=== PATIENT | male | born 1945 | race Caucasian/White ===

== ENCOUNTER 2018-10-31 09:57 | Inpatient (IN) | payer MEDICARE ==
[~2018-10-31] VITALS: Ht 182.9 cm; Wt 64.8 kg
[~2018-10-31 09:57] MED LIST: CEPH500 PO; MULVITMINF; OXYM.05NI; TETR.05OPS BOTHEYES
[2018-10-31 12:00] LABS: BASOPHILS ABSOLUTE AUTO 0.01 K/mm3 (0.00-0.23); BASOPHILS PERCENT AUTO 0 % (0-2); EOSINOPHILS PERCENT AUTO 0 % (0-6); Hematocrit 36.8 % (37.0-53.0); Hemoglobin 12.7 g/dL (13.5-17.5); IMMATURE GRAN ABSOLUTE AUTO 0.03 K/mm3 (0.00-0.10); IMMATURE GRAN PERCENT AUTO 1 % (0-1); LYMPHOCYTES ABSOLUTE AUTO 0.47 K/mm3 (0.84-5.20); LYMPHOCYTES PERCENT AUTO 8 % (21-46); MONOCYTES ABSOLUTE AUTO 0.64 K/mm3 (0.16-1.47); MONOCYTES PERCENT AUTO 10 % (4-13); Mean Corpuscular HGB 32.8 pg (26.0-34.0); Mean Corpuscular HGB Conc 34.5 g/dL (31.5-36.5); Mean Corpuscular Volume 95 fL (80-100); Mean Platelet Volume 8.4 fL (9.1-12.4); NEUTROPHILS ABSOLUTE AUTO 5.07 K/mm3 (1.96-9.15); NEUTROPHILS PERCENT AUTO 81 % (41-73); Platelet Count 173 K/mm3 (150-400); RDW Coefficient Variation 13.2 % (11.7-14.2); RDW Standard Deviation 46.1 fL (35.1-46.3); Red Blood Cell Count 3.87 M/mm3 (4.30-5.90); White Blood Cell Count 6.22 K/mm3 (4.00-11.30)
[2018-10-31 12:21] LABS: Alanine Aminotransfer (ALT/SGP 51 U/L (12-78); Albumin, Blood 3.2 g/dL (3.4-5.0); Albumin/Globulin Ratio 0.9 (0.8-1.8); Alk Phos 84 U/L (50-136); Anion Gap 9 mmol/L (6-16); Aspartate Aminotrans (AST/SGOT 75 U/L (12-37); Bilirubin, Total 2.6 mg/dL (0.1-1.0); Blood Urea Nitrogen 9 mg/dL (8-24); Bun/Creatinine Ratio 11.3 (12.0-20.0); CO2, Blood 23 mmol/L (21-32); Calcium, Blood 8.4 mg/dL (8.5-10.1); Chloride, Blood 101 mmol/L (98-108); Globulin, Blood 3.4 g/dL (2.2-4.0); Glomerular Filtration Rate >60 (60-); Glucose, Blood 140 mg/dL (70-99); Potassium, Blood 4.4 mmol/L (3.5-5.5); Sodium, Blood 133 mmol/L (136-145); Total Protein, Blood 6.6 g/dL (6.4-8.2)
--- NOTE | 2018-10-31 13:20 | NUR ---
ORTHO CONSULT SPOKE WITH DR ACKERMAN, DR STEVENSON AWARE OF CONSULT.
--- NOTE | 2018-10-31 17:42 | NUR ---
SHIFT SUMMARY PT AWAKE, CONFUSED, PLEASANT & COOPERATIVE. CIWA 12 TX'D WITH 1 MG ATIVAN. 18G LFA. THIAMINE IVF @ 150 MLS/HR. CAROLYN PO, DENIES N&V. S/P SANTOS FX, ELEVATED ON PILLOW/ICE ON. TELE SINUS @ 93. SCDS. ORTHO CONSULT CALLED. PAIN MANAGED WITH 0.5 MG DILAUDID. NORVASC GIVEN FOR BP.
[2018-11-01 03:40] LABS: BASOPHILS ABSOLUTE AUTO 0.02 K/mm3 (0.00-0.23); BASOPHILS PERCENT AUTO 0 % (0-2); EOSINOPHILS PERCENT AUTO 0 % (0-6); Hematocrit 31.7 % (37.0-53.0); Hemoglobin 10.9 g/dL (13.5-17.5); IMMATURE GRAN ABSOLUTE AUTO 0.02 K/mm3 (0.00-0.10); IMMATURE GRAN PERCENT AUTO 0 % (0-1); LYMPHOCYTES ABSOLUTE AUTO 0.97 K/mm3 (0.84-5.20); LYMPHOCYTES PERCENT AUTO 15 % (21-46); MONOCYTES ABSOLUTE AUTO 0.77 K/mm3 (0.16-1.47); MONOCYTES PERCENT AUTO 12 % (4-13); Mean Corpuscular HGB 32.2 pg (26.0-34.0); Mean Corpuscular HGB Conc 34.4 g/dL (31.5-36.5); Mean Corpuscular Volume 94 fL (80-100); Mean Platelet Volume 8.8 fL (9.1-12.4); NEUTROPHILS ABSOLUTE AUTO 4.65 K/mm3 (1.96-9.15); NEUTROPHILS PERCENT AUTO 72 % (41-73); Platelet Count 141 K/mm3 (150-400); RDW Standard Deviation 44.6 fL (35.1-46.3); Red Blood Cell Count 3.39 M/mm3 (4.30-5.90); White Blood Cell Count 6.43 K/mm3 (4.00-11.30)
[2018-11-01 03:58] LABS: Alanine Aminotransfer (ALT/SGP 40 U/L (12-78); Albumin, Blood 2.8 g/dL (3.4-5.0); Albumin/Globulin Ratio 0.9 (0.8-1.8); Alk Phos 64 U/L (50-136); Anion Gap 8 mmol/L (6-16); Aspartate Aminotrans (AST/SGOT 57 U/L (12-37); Bilirubin, Total 2.7 mg/dL (0.1-1.0); Blood Urea Nitrogen 8 mg/dL (8-24); Bun/Creatinine Ratio 12.2 (12.0-20.0); CO2, Blood 25 mmol/L (21-32); Calcium, Blood 7.9 mg/dL (8.5-10.1); Chloride, Blood 102 mmol/L (98-108); Creatinine, Blood 0.66 mg/dL (0.60-1.20); Globulin, Blood 3.1 g/dL (2.2-4.0); Glomerular Filtration Rate >60 (60-); Glucose, Blood 103 mg/dL (70-99); Magnesium, Blood 2.3 mg/dL (1.6-2.4); Potassium, Blood 3.7 mmol/L (3.5-5.5); Sodium, Blood 135 mmol/L (136-145); Total Protein, Blood 5.9 g/dL (6.4-8.2)
--- NOTE | 2018-11-01 07:58 | NUR ---
SUMMARY: ADMIT DAY 2 RIGHT HUMERUS FX. VSS, AFEBRILE, TOLERATING REG DIET, VOIDING CLEAR CARLOS URINE AND HAD ONE LARGE LIQUED STOOL. PT APPEARS UNSTEADY ON FEET AND IMPULSIVE BUT FOLLOWS DIRECTIONS WELL. RUE DOES NOT APPEAR TO BE PAINFUL PT NEEDED REMINDERS TO NOT BEAR WEIGHT ON RUE WITH ADL'S. CONTINUE TO MONITOR FOR PAIN, SWELLING. CIWA 8 OR LESS THROUGHOUT THE NOC AND DID NOT REQUIRE PRN ATIVAN.
--- NOTE | 2018-11-01 12:38 | NUR ---
PT TRYING TO GET OUT OF BED WITHOUT ASSISTANCE. PT REDIRECTED, CALL LIGHT INSTRUCTION GIVEN AND BED ALARM ON
--- NOTE | 2018-11-01 16:22 | NUR ---
WITHDRAWAL DR. ACKERMAN NOTIFIED THAT PT WAS CLEARED BY ORTHO TO DISCHARGE HOME. DR. ACKERMAN NOTIFIED THAT PT IS HAVING WITHDRAWAL SYMPTOMS CIWA AT 7 AND INCREASING. PT REPORTS HE NO LONGER WANTS TO DRINK. AT THIS TIME PLAN TO TREAT WITH ATIVAN AND LIBRIUM. WILL DC BEERS ON TRAYS PER DR. ACKERMAN AND CONTINUE TO MONITOR.
--- NOTE | 2018-11-01 17:20 | NUR ---
PT ADMITTED FOR R HUMERUS FX. RIGHT ARM SWOLLEN AND BRUISED. PATIENT KEEPS USING ARM AND PUTTING PRESSURE ON IT. EDUCATED PATIENT ON NEED TO REST ARM. PT HAS BEEN CONFUSED DURING SHIFT. ALERT TO SELF, SITUATION AND SOMETIMES LOCATION. INTERMITTENT AGITATION AND ANXIETY. MEDICATED WITH ATIVAN X2. CIWA SCORES OF 12 AND 11 BEFORE RECEIVING ATIVAN. SMALL VISIBLE TREMORS. PT IS STATING HE NO LONGER WANTS TO DRINK BEER, DRANK HALF OF BEER AT LUNCH. SLING PLACED ON PATIENT PATIENT HAS TAKEN OFF SLING AND REFUSES TO KEEP ON. LIBRIUM ORDERS STARTED PER DR. ACKERMAN. PATIENT IN AND OUT OF BED MULTIPLE TIMES. BED ALARM ON, CALL LIGHT IN REACH.
--- NOTE | 2018-11-01 18:29 | NUR ---
ATIVAN WAS GIVEN. CIWA SCORE 14 AT TIME ATIVAN WAS GIVEN. WILL REASSESS AND CONTINUE TO MONITOR.
--- NOTE | 2018-11-01 19:07 | NUR ---
HUE NURSE PRACTITIONER NOTIFIED OF INCREASED CIWA SCORE OF 14 WHEN ATIVAN WAS GIVEN. PT HAS NOT IMPROVED SINCE DOSE WAS GIVEN. WILL GIVE ATIVAN 2MG ORDERED. WILL CONTINUE TO MONITOR.
--- NOTE | 2018-11-01 19:45 | NUR ---
SHIFT SUMMARY CIWA SCORE HAS INCREASED T/O THE DAY. ATIVAN GIVEN. PT HAS REMOVED THE SLING TO HIS R ARM MULTIPLE TIMES AND CONTINUES TO USE THE R ARM. CAP REFILL WNL. VSS. WILL MONITOR UNTIL REPORT TO ONCOMING RN.
--- NOTE | 2018-11-01 20:45 | NUR ---
TRANSFERED TO ICU BED 11 VIA HOSPITAL BED DUE TO WITHDRAWL SYSMPTOMS INCLUDING AUDITORY, TACTILE, AND VISUAL HALLUCINATIONS AND A CIWA OF 31. ALL BELONGINGS GATHERED AND TAKEN WITH PT. TRANSFERED TO BED WITH FULL STAFF ASSISTANCE, TOLERATED WELL. UPDATED REPORT GIVEN AT BEDSIDE TO Akilah MENESES RN USING SBAR.
[2018-11-01 20:49] LABS: Alanine Aminotransfer (ALT/SGP 43 U/L (12-78); Albumin, Blood 2.9 g/dL (3.4-5.0); Albumin/Globulin Ratio 0.9 (0.8-1.8); Alk Phos 64 U/L (50-136); Anion Gap 6 mmol/L (6-16); Aspartate Aminotrans (AST/SGOT 69 U/L (12-37); Bilirubin, Total 2.9 mg/dL (0.1-1.0); Blood Urea Nitrogen 8 mg/dL (8-24); CO2, Blood 24 mmol/L (21-32); Calcium, Blood 8.2 mg/dL (8.5-10.1); Chloride, Blood 105 mmol/L (98-108); Creatinine, Blood 0.67 mg/dL (0.60-1.20); Globulin, Blood 3.2 g/dL (2.2-4.0); Glomerular Filtration Rate >60 (60-); Glucose, Blood 100 mg/dL (70-99); Magnesium, Blood 2.2 mg/dL (1.6-2.4); Potassium, Blood 3.2 mmol/L (3.5-5.5); Sodium, Blood 135 mmol/L (136-145); Total Protein, Blood 6.1 g/dL (6.4-8.2)
--- NOTE | 2018-11-01 21:30 | NUR ---
PT TRANSFERRED INTO ICU 11 FROM SURGICAL FLOOR FOR INCREASING CIWA. PT ARRIVES WEARING RIGHT ARM SLING/BOLSTER. MUMBLING, AND SPEAKING TO OTHERS NOT IN TH E ROOM. REACHES OUT TO OBJECTS THAT ARE NOT PRESENT. PT DOES NOT RESPOND TO ANY QUESTIONING. PLACED PT IN DILLON VEST RESTRAINT SECONDARY TO PT ATTEMPTING TO GET OUT OF BED WITHOUT REGAURD TO HIS OWN SAFETY. PT HAS BEEN MEDICATED WITH ATIVAN FOR CIWA LEVEL OF 23. WILL REVEIW CHART AND PLAN OF CARE FOR THIS PT.
--- NOTE | 2018-11-02 00:35 | NUR ---
HAVE MADE CALL TO ANTHONY SWANN WITH UPDATE ON PT. STARTED PRECEDEX DRIP AT 0.5 MCG/KG. PT HAS CALMED SOME. DID PLACE SOFT RESTRAINT TO LEFT ARM SECONDARY TO HIM PULLING AT HIS SLING AND TRYING TO DISMANTLE BOLSTER. THIS HAS HELPED PROTECT PT FROM SELF HARM. PT DOES TEND TO THROW HIS LEGS OVER RAILING THOUGH WITH DILLON ON, PT NOT ABLE TO PROGRESS FURTHER. BLADDER SCAN OF PT REVEALS 88 ML URINE RETENTION. WILL MONITOR.
--- NOTE | 2018-11-02 03:00 | NUR ---
PT HAS DROP IN HEART RATE AND A DROP IN BLOOD PRESSURES. DID DECREASE PRECEDEX DRIP TO 0.2 MCG'S/KG/HOUR. PT'S BLOOD PRESSURES AND HEART RATE REMAIN STABLE AFTER THIS. WILL CONTINUE TO MONITOR PT.
--- NOTE | 2018-11-02 06:30 | NUR ---
PT HAS BEEN INCONTINENT TO URINE AND HAS SMEAR OF STOOL. PT NOT ABLE TO EXPRESS THAT HE HAD BEEN INCONTINENT. DOES NOT FOLLOW COMMANDS OR CONVERSATION. REMAINS ON PRECEDEX AT 0.2 MCG'S/KG/HOUR. PT CONTINUES IN DILLON VEST, AND SOFT WRIST RESTRAINT ON LEFT SIDE. PT HAD BEEN PULLING AT BOLSTER FOR HIS RIGHT ARM. IS NOT REDIRECTABLE. WILL CONTINUE TO MONITOR PT, AND WILL REPORT OFF TO ONCOMING RN.
[2018-11-02 06:57] LABS: BASOPHILS ABSOLUTE AUTO 0.01 K/mm3 (0.00-0.23); BASOPHILS PERCENT AUTO 0 % (0-2); EOSINOPHILS ABSOLUTE AUTO 0.01 K/mm3 (0.00-0.68); EOSINOPHILS PERCENT AUTO 0 % (0-6); Hematocrit 25.7 % (37.0-53.0); Hemoglobin 8.7 g/dL (13.5-17.5); IMMATURE GRAN ABSOLUTE AUTO 0.04 K/mm3 (0.00-0.10); IMMATURE GRAN PERCENT AUTO 1 % (0-1); LYMPHOCYTES ABSOLUTE AUTO 0.79 K/mm3 (0.84-5.20); LYMPHOCYTES PERCENT AUTO 16 % (21-46); MONOCYTES ABSOLUTE AUTO 0.52 K/mm3 (0.16-1.47); MONOCYTES PERCENT AUTO 11 % (4-13); Mean Corpuscular HGB 32.1 pg (26.0-34.0); Mean Corpuscular HGB Conc 33.9 g/dL (31.5-36.5); Mean Corpuscular Volume 95 fL (80-100); NEUTROPHILS ABSOLUTE AUTO 3.58 K/mm3 (1.96-9.15); NEUTROPHILS PERCENT AUTO 72 % (41-73); Platelet Count 122 K/mm3 (150-400); RDW Coefficient Variation 12.8 % (11.7-14.2); RDW Standard Deviation 44.1 fL (35.1-46.3); Red Blood Cell Count 2.71 M/mm3 (4.30-5.90); White Blood Cell Count 4.95 K/mm3 (4.00-11.30)
[2018-11-02 07:11] LABS: Percent Saturation 24.4 % (20.0-50.0)
[2018-11-02 07:14] LABS: Anion Gap 4 mmol/L (6-16); Blood Urea Nitrogen 7 mg/dL (8-24); CO2, Blood 24 mmol/L (21-32); Calcium, Blood 7.7 mg/dL (8.5-10.1); Chloride, Blood 109 mmol/L (98-108); Creatinine, Blood 0.54 mg/dL (0.60-1.20); Glomerular Filtration Rate >60 (60-); Glucose, Blood 88 mg/dL (70-99); Sodium, Blood 137 mmol/L (136-145)
[2018-11-02 07:15] LABS: Potassium, Blood 5.9 mmol/L (3.5-5.5)
--- NOTE | 2018-11-02 07:56 | NUR ---
ASSUMED CARE: REPORT RECEIVED FROM BILLIE Jimenez RN. ASSUMED CARE OF THIS PT AT APRPOX 0700. ON ASSESSMENT, PT RESTING QUIETLY. SOFT WRIST RESTRAINT TO L ARM & DILLON VEST IN PLACE. WHEN AWAKE, PT PULLS AT SLING TO R ARM & LINES/CORDS, ALSO ATTEMPTS TO GET OOB PER REPORT. CIWA CHARTED. PRECEDEX DRIP AT 0.2 MCG/KG/HR. PT ON RA W/ O2 SATS > 95%, RESP E/U, OCCASIONAL SNORE NOTED. MONITOR SHOWS NSR W/ HR 80s, BP STABLE. ATTENDS IN PLACE FOR INTERMITTENT INCONTINENCE. WILL CONTINUE TO MONITOR & UPDATE NEEDED.
--- NOTE | 2018-11-02 16:08 | NUR ---
Spiritual Care intial note: Mr. Arreaga slept soun dly while I met with his two sisters at bedside. They tell me that Jaime understands he needs to make life-style changes. "Wether he does them or not is another matter." One sister lives next door to Jaime and the other is nearby. Both appear loving and devoted. This is a non-hinduism family, but Jaime's family responded well to affirmation of love and assurance of excellent care/attention. Encouraged self-care. [employer] services will remain available.
--- NOTE | 2018-11-02 17:02 | NUR ---
SHIFT SUMMARY: NO ACUTE CHANGES SINCE ASSUMING CARE. PT HAS RESTED WELL DURING THIS SHIFT & WHEN AWAKE HAS NO C/O PAIN OR DISCOMFORT. R ARM IS HEAVILY BRUISED & DISCOLORED, THERE IS A MODERATE AMNT OF SWELLING TO THE AREA WELL. THE ARM CONTINUES HAVING STRONG RADIAL PULSES & SLING REMAINS INTACT. CIWA SCORES CHARTED, PT MORE AWAKE THIS AFTERNOON & IS PLEASANT/ COOPERATIVE W/ CARE. LS ARE CLEAR T/O, PT ON RA W/ O2 SATS > 92%. OCCASIONAL SNORES NOTED BUT PT DOES NOT DESAT DURING THIS TIME. MONITOR SHOWS SB-SR, HR 50-60s ON AVG. BP LABILE, SBP 100-140s. BT x4, PT HAS NO GI COMPLAINTS. STRAIGHT CARH PERFORMED THIS AFTERNOON PT HADN'T VOIDED DURING THE FIRST HALF OF THE SHIFT & BLADDER SCAN REVEALED 656 ML URINE IN BLADDER. WILL CONTINUE TO MONITOR & REPORT OFF TO ONCOMING RN.
--- NOTE | 2018-11-02 19:46 | NUR ---
ASSUMED CARE RECIEVED REPORT FROM AMY BLOOM. PT IS LYING IN BED LIGHTLY SOMNOLENT; AROUSABLE. HE THOUGHT HE WAS IN [place], BUT KNOWS HES IN A HOSPITAL. VITALS ARE STABLE. PT HAS AN ARM SLING ON HIS RIGHT ARM, SCD'S ON HIS BILATERAL CALVES, AND HAS DRY ATTENDS ON. NO FAMILY AT BEDSIDE. BED IS LOW AND LOCKED. CALL LIGHT WITHIN REACH. PT DENIES ANY PAIN OR DISCOMFORT AND STATES HE IS TIRED.
[2018-11-03 04:45] LABS: Hemoglobin 10.5 g/dL (13.5-17.5); Mean Corpuscular HGB 32.8 pg (26.0-34.0); Mean Corpuscular Volume 94 fL (80-100); Mean Platelet Volume 8.5 fL (9.1-12.4); Platelet Count 182 K/mm3 (150-400); RDW Coefficient Variation 12.7 % (11.7-14.2); RDW Standard Deviation 43.6 fL (35.1-46.3); White Blood Cell Count 4.51 K/mm3 (4.00-11.30)
--- NOTE | 2018-11-03 05:08 | NUR ---
UPDATE BOTH PATIENT'S IV'S HAVE INFILTRATED, ATTEMPTING TO INSERT POWERGLIDE NOW; PRECEDEX ON STANDBY. ALSO UNSURE IF 2MG ATIVAN AT 0417 REACHED BLOODSTREAM. WILL REASSESS CIWA IN INTERVENTIONS. PT IS AWAKE AFTER LAB DRAWS, STRAIGHT CATH, AND CURRENTLY POWERGLIDE INSERTION. PT IS ALERT ENOUGH TO ANSWER SOME QUESTIONS, BUT HAS SEVERELY GARBLED SPEECH, AND IS VERY HARD OF HEARING. I TRIED GIVING HIM MOUTH SWABS, BUT HAS NOT HELPED WITH COMPREHENSION. HE IS HAVING TROUBLE REMEMBERING WHERE HE IS, AFTER TELLING HIM HES IN [facility] IN [place] (HE THOUGHT HE WAS IN [place]) AT THE BEGINNING OF SHIFT - HE NOW THINKS HE IS IN "[place], [place]". HE DOES RECALL HAVING TWO SISTERS, THOUGH.
[2018-11-03 05:34] LABS: Albumin, Blood 2.6 g/dL (3.4-5.0); Anion Gap 7 mmol/L (6-16); Blood Urea Nitrogen 8 mg/dL (8-24); Bun/Creatinine Ratio 13.9 (12.0-20.0); CO2, Blood 23 mmol/L (21-32); Calcium, Blood 7.8 mg/dL (8.5-10.1); Chloride, Blood 108 mmol/L (98-108); Creatinine, Blood 0.58 mg/dL (0.60-1.20); Glomerular Filtration Rate >60 (60-); Glucose, Blood 84 mg/dL (70-99); Phosphorus, Blood 2.1 mg/dL (2.5-4.9); Sodium, Blood 138 mmol/L (136-145)
[2018-11-03 05:35] LABS: Potassium, Blood 3.7 mmol/L (3.5-5.5)
--- NOTE | 2018-11-03 07:27 | NUR ---
SHIFT SUMMARY PT IS LYING IN BED ASLEEP. PT HAD BOTH PERIPHERAL IV'S INFILTRATE AND WENT WITHOUT PRECEDEX FOR AN UNKNOWN AMOUNT OF TIME, ALONG WITH NOT RECIEVING HIS ATIVAN DOSE. EARLY THIS MORNING PT WAS HAVING VISUAL HALLUCINATIONS DESCRIBING A MOVING LIGHTBULB THAT WAS NO WHERE TO BE SEEN. HE WAS NOT AGITATED BUT SLIGHTLY ANXIOUS AND DEFINITELY CONFUSED. CURRENTLY PRECEDEX IS INFUSING THROUGH A POWERGLIDE AT 0.2MCG/KG/HR. PT WAS BLADDER SCANNED LAST NIGHT DUE TO NO VOIDING; AND STRAIGHT CATH WAS PERFORMED DUE TO URINARY RETENTION OF 500ML OF CARLOS URINE. PRECEDEX WAS NOT INFUSING - HR HAD INCREASED TO 130. CURRENTLY BACK DOWN TO 100. BP HAS BEEN LABILE, SOMETIMES ELEVATED, SOMETIMES PERFECTLY FINE (SEE VS FLOWSHEET). BED IS LOW AND LOCKED. CALL LIGHT WITHIN REACH. NO FAMILY AT BEDSIDE.
--- NOTE | 2018-11-03 08:06 | NUR ---
ASSUMED CARE: REPORT RECEIVED FROM LAKSHMI Olvera RN. ASSUMED CARE OF THIS PT AT APPROX 0700. ON ASSESSMENT, THE PT IS RESTING QUIETLY. HE AWAKENS BRIEFLY TO VERBAL STIMULUS BUT REMAINS CONFUSED ABOUT TIME/ PLACE/ LOCATION, HE DOES FOLLOW COMMANDS. PT REMAINS IN DILLON VEST DOCUMENTED FOR CONTINUED CONFUSION & ATTEMPTS TO GET OOB WHEN MORE AWAKE. LS ARE DIM T/O, PT ON RA W/ O2 SATS > 92%. MONITOR SHOWS SR, HR 90s. BP LABILE, SBP 100-150s. PRECEDEX INFUSING AT 0.2 MCG/KG/HR. CIWA CHARTED. WILL CONTINUE TO MONITOR & UPDATE NEEDED.
--- NOTE | 2018-11-03 09:42 | NUR ---
DR QUIÑONES: PROVIDER AT BEDSIDE TO SEE PT. INFORMED HER OF PT's INCREASED CONFUSION W/ PRECEDEX OFF LAST NIGHT & ALSO OF PT's NEED TO BE STRAIGH CATHED AGAIN FOR RETENTION LAST NIGHT. NO NEW ORDERS AT THIS TIME. KPHOS INFUSING PER PRIOR ORDERS. WILL CONTINUE TO MONITOR & UPDATE NEEDED.
--- NOTE | 2018-11-03 10:48 | NUR ---
1015-ASSUMED CARE OF PT. PT IS SEDATED WITH PRECEDEX @ 0.2MCG/KG/HR. SLEEPING SOUNDLY AT THIS TIME. SLEEP APNEA NOTED WITHOUT DESATURATION. CLEAR BREATH SOUNDS, DIMINISHED BASES. ON ROOM AIR. R ARM BURTH SLING. 1050-PT WOKE UP. PT CONFUSED OF WHERE HE'S AT. REMINDED HIM HE IS IN THE HOSPITAL IN THE ICU. PT IS FOLLOWING COMMANDS. DENIES PAIN TO HIS RIGHT ARM.
--- NOTE | 2018-11-03 15:18 | NUR ---
PT'S SISTER TONI AT BEDSIDE. UPDATED HER OF PT'S STATUS. PT IS ABLE TO RECOGNIZE HER SISTER. STILL WITH A LITTLE CONFUSION NOTED. FOLLOWING COMMANDS.
--- NOTE | 2018-11-03 17:50 | NUR ---
DR. QUIÑONES WAS CALLED RE: PT HAS VOIDED SMALL AMOUNT NOTED IN DIAPER. DID BLADDER SCAN NOTED TO HAVE 270-380 RESIDUAL URINE. SHE ORDERED TO CONTINUE STRAIGTH CATH INSTEAD OF PLACING MATHEWS.
--- NOTE | 2018-11-03 18:36 | NUR ---
SHIFT SUMMARY: PT HAS BEEN SLEEPING MOST OF THE DAY. PT WOKE UP AT AROUND 1400 THIS AFTERNOON, SAT AT THE SIDE OF THE BED AND DANGLE. ENCOURAGED PT TO SIT ON THE CHAIR FOR A SHORT PERIOD OF TIME, PT WANTED TO GO BACK TO SLEEP. CIWA SCORE 4-5. PT STILL ON PRECEDEX DRIP @ 0.1 MCG/KG/HR. PT IS STILL CONFUSED AT TIMES. TRIED TO GIVE PT SIPS OF WATER BUT WAS COUGHING AFTER THE 3RD SIP. PT NOT FED. PT WAS AWAKE WHEN SISTER CAME TO VISIST, TALKED WITH HER FOR A FEW MINUTES. STRAIGHT CATH PATIENT PER DR. QUIÑONES'S ORDER.
--- NOTE | 2018-11-03 21:20 | NUR ---
ASSUMED CARE OF PT, REPORT RCV'D FROM MERLE HOPE. PT RESPONSIVE TO VERBAL STIMULI, ABLE TO STATE NAME, LOCATION ("HOSPITAL"), INCIDENCE ("FELL AND HIT HEAD") BUT WAS UNABLE TO CORRECTLY IDENTIFY MONTH OR YEAR. PT SLOW TO RESPOND TO QUESTIONS AND HAS PERIODS OF INCOHERENT MUMBLING. LUNG SOUNDS DIM T/O, O2 SATS >93 ON RA, SLIGHTLY FEBRILE, 99.6. PT INCONTINENT OF URINE AND RETAINS URINE PER DAYSHIFT NURSE. BLADDER SCAN PRN WITH STRAIGHT CATH 1X PER SHIFT ORDERED. WILL MONITOR FOR ETOH SYMPTOMS, CURRENT CIWA 4. SEE FULL SHIFT ASSESSMENT.
--- NOTE | 2018-11-04 02:11 | NUR ---
PLACED PRECEDEX ON STANDBY AT 0000. CURRENTLY PT AWAKE AND COOPERATIVE WITH CARE. PT ALERT TO SELF AND SITUATION, CONFUSED TO LOCATION. PT KEEPS ASKING FOR HIS "WATCH" AND INSISTING THAT HE HAS A "PLANE TO CATCH TO GO SEE A GAME [place]". PT REASSURED THAT HIS BELONGINGS ARE SAFE AND SECURE. PT EASILY COMFORTED. VISIBLE TREMORS NOTED, CIWA 9, MEDICATED WITH 25 MG LIBRIUM. PT ABLE TO SIT UP, DRINK WATER USING A STRAW AND SWALLOW PILL WITH NO DIFFICULTIES. PT CURRENTLY SITTING UP IN BED WATCHING FOOTBALL. BED IN LOW LOCKED POSITION, CALL LIGHT WITHIN REACH, BED ALARM ON .
--- NOTE | 2018-11-04 03:50 | NUR ---
PT CONTINUES TO BE CONFUSED AND IS NO LONGER COOPERATING WITH CARE. PT ATTEMPTING TO TAKE SCD'S OFF AND CLIMB OUT OF BED DESPITE BEING REORIENTED TO PLACE AND SITUATION. PT IS ASKING HOW I "GOT INTO HIS HOUSE" AND IF I "USED THE BACK DOOR". PT NOW REFUSING TO TAKE PO MEDICATIONS. PRECEDEX GTT RESTARTED AT 0.2 MCG/KG/HR.
[2018-11-04 04:17] LABS: Albumin, Blood 2.2 g/dL (3.4-5.0); Anion Gap 7 mmol/L (6-16); Blood Urea Nitrogen 9 mg/dL (8-24); Bun/Creatinine Ratio 12.7 (12.0-20.0); CO2, Blood 23 mmol/L (21-32); Calcium, Blood 7.6 mg/dL (8.5-10.1); Chloride, Blood 108 mmol/L (98-108); Creatinine, Blood 0.71 mg/dL (0.60-1.20); Glomerular Filtration Rate >60 (60-); Glucose, Blood 91 mg/dL (70-99); Phosphorus, Blood 2.8 mg/dL (2.5-4.9); Potassium, Blood 3.6 mmol/L (3.5-5.5); Sodium, Blood 138 mmol/L (136-145)
--- NOTE | 2018-11-04 05:50 | NUR ---
SHIFT SUMMARY PT REMAINS ON PRECEDEX 0.1 MCG/KG/HR. PT NO LONGER AGITATED AND ATTEMPTING TO CLIMB OUT OF BED, SLEEPING BUT AROUSABLE. PT HAD LARGE AMOUNT OF INCONTINENT URINE IN ATTENDS. BLADDER SCAN SHOWED 53 ML OF URINE, NO SIGN OF RETENTION OR NEED FOR STRAIGHT CATH. CURRENT CIWA SCORE IS 0, PT IS SLEEPING AND NO OUTWARD SIGNS OF ETOH W/D. PLEASE SEE PREVIOUS NOTES FROM THIS SHIFT. WILL REPORT TO DAYSHIFT NURSE.
--- NOTE | 2018-11-04 08:53 | NUR ---
PT IS A FEEDER. PT WAS ABLE TO SWALLOW SPOONFULS OF WATER. COUGHED AT TIMES. PT WAS ABLE TO TOLERATE FEEDING WELL. PT ONLY ATE 3 SPOONFULS OF OATMEAL AND 3 SPOONFULS OF EGGS WITH SMALL AMOUNT OF JUICE AND WATER. FAMILY AT BEDSIDE. PT'S SISTER STATED, PT "EATS LIKE A BIRD."
--- NOTE | 2018-11-04 14:33 | NUR ---
ASSUMED CARE OF PT AT 0700. PT SLEEPING AND ON 0.1 PRECEDEX. AT 0800 PT AWAKE, ASKING IF HE IS STILL IN HOSPITAL, INFORMED PT HE WAS IN THE HOSPITAL IN ICU. FAMILY AT BEDSIDE, PT MEDICATED FOR PN. SLING/IMMOBILIZER TO R ARM/SHOULDER. PLAN TO MOBILIZE PT TOLERATED AND TITRATE PRECEDEX DOWN TOLERATED, ENCOURAGE PO INTAKE, LIBRIUM PO NEEDED.
--- NOTE | 2018-11-04 16:29 | NUR ---
PT AWOKEN TO ASSESS. PT REMAINS CONFUSED, SLOW TO ANSWER QUESTIONS, GARBLED SPEECH. BLADDER FOUND TO BE DISTENDED, PT STS DOES NOT FEEL THE NEED TO URINATE. BLADDER SCANNER SHOWED >200, REPEATED WITH SURGICAL FLOOR BLADDER SCAN WHICH SHOWED 367ml. DR QUIÑONES NOTIFIED OF RETENTION, NO NEW ORDERS AT THIS TIME. WILL CONTINUE TO ENCOURAGE PT TO URINATE PER PHYSICIAN. WILL RECHECK WITH BLADDER SCAN THIS EVENING.
--- NOTE | 2018-11-04 18:12 | NUR ---
SHIFT SUMMARY PT ASLEEP MOST OF SHIFT , SOMEWHAT CONFUSED, AT TIMES PT IS AWARE OF LOCATION AND EVENT, CANNOT RECALL DATE. PT COMPLAINS OF R ARM/SHOULDER PAIN WITH REPOSITION/ATTENDS CHANGE, OTHERWISE DENIES PAIN. PRECEDEX WAS TITRATED OFF AT 1645, PT BECOMING MORE AWAKE AND ALERT TOWARDS END OF SHIFT. SWALLOW EVALUATED WITH SWAB @ 1800, PT COUGHS EXCESSIVELY, NOT FOLLOWING DIRECTIONS. DINNER HELD AT THIS TIME DUE TO ASPIRATION CONCERNS. WILL RE-EVALUATE PT BECOMES MORE ALERT.
--- NOTE | 2018-11-04 20:15 | NUR ---
ASSUMED CARE OF PT, REPORT RCV'D FROM ANNITA RN AND DIAMOND RN. PT ALERT TO SELF, PLACE, AND SITUATION. PT BELIEVES HE HAS BEEN THE HOSPITAL FOR "2 NIGHTS FOR HIS BROKEN SHOULDER". PT'S RIGHT ARM IS SECURE IN SLING. PT DENIES PAIN AND DECLINES PAIN MEDICATION WITH AGREEMENT TO LET NURSING STAFF KNOW IF PAIN INCREASES. PRECEDEX PLACED ON STANDBY @1645. PT IS CURRENTLY COOPERATIVE WITH CARE AND IS FOLLOWING DIRECTION BUT IS VISIBLY TREMULOUS AND ANXIOUS. VITAL SIGNS REMAIN STABLE. ATTENDS IN PLACE, WILL BLADDER SCAN NEEDED. SEE FULL SHIFT ASSESSMENT.
--- NOTE | 2018-11-04 21:35 | NUR ---
PHONE CONVERSATION WITH PT'S SISTERS AND NIECE REGARDING PT'S CONDITION. FAMILY CONCERNED ABOUT PT'S ABILITY TO COMMUNICATE NEEDS, ESPECIALLY PAIN. PER FAMILY, PT IS CONFUSED AT BASELINE D/T TBI AND IS EMBARASSED AND OFTEN UNABLE TO COMMUNICATE NEEDS. PT'S FAMILY CONCERNED THAT PT IS IN PAIN BUT UNABLE TO CONVEY THAT, FAMILY REASSURED THAT PT IS RECEIVING PAIN MEDICATION. PER FAMILY, PT REQUIRES STRICT HOME ROUTINE AND FAMILIAR SURROUNDINGS OR HE BECOMES OVERWHELMED AND ANXIOUS. PER FAMILY, PT APPEARED MORE COGNIZANT DURING MORNING VISIT.
--- NOTE | 2018-11-05 01:33 | NUR ---
PT REQUIRING 2-3L O2 TO MAINTAIN O2 SATS>90. PT HAS GURGLING SOUND IN THROAT WITH CONTINUOUS NON-PRODUCTIVE COUGH, SHALLOW BREATHING. PT OPENING EYES TO VERBAL STIMULI AND FOLLOWING SOME, NOT ALL, COMMANDS. RT AT BEDSIDE ADMINISTERING BREATHING TX. LUNG SOUNDS CLEAR T/O. COMPLETED BEDSIDE SWALLOW EVAL AND DETERMINED PT SHOULD BE NPO D/T DECREASED LOC, INCREASING O2 NEEDS, AND INCREASING THROAT SECRETIONS.
[2018-11-05 03:45] LABS: BASOPHILS ABSOLUTE AUTO 0.03 K/mm3 (0.00-0.23); BASOPHILS PERCENT AUTO 0 % (0-2); Hematocrit 26.5 % (37.0-53.0); Hemoglobin 9.1 g/dL (13.5-17.5); LYMPHOCYTES ABSOLUTE AUTO 0.67 K/mm3 (0.84-5.20); LYMPHOCYTES PERCENT AUTO 9 % (21-46); MONOCYTES ABSOLUTE AUTO 0.87 K/mm3 (0.16-1.47); MONOCYTES PERCENT AUTO 11 % (4-13); Mean Corpuscular HGB 33.6 pg (26.0-34.0); Mean Corpuscular HGB Conc 34.3 g/dL (31.5-36.5); Mean Platelet Volume 8.4 fL (9.1-12.4); Platelet Count 193 K/mm3 (150-400); RDW Coefficient Variation 12.9 % (11.7-14.2); RDW Standard Deviation 45.9 fL (35.1-46.3); Red Blood Cell Count 2.71 M/mm3 (4.30-5.90); White Blood Cell Count 7.68 K/mm3 (4.00-11.30)
[2018-11-05 03:46] LABS: EOSINOPHILS ABSOLUTE AUTO 0.01 K/mm3 (0.00-0.68); EOSINOPHILS PERCENT AUTO 0 % (0-6); IMMATURE GRAN ABSOLUTE AUTO 0.13 K/mm3 (0.00-0.10); IMMATURE GRAN PERCENT AUTO 2 % (0-1); Mean Corpuscular Volume 98 fL (80-100); NEUTROPHILS ABSOLUTE AUTO 5.97 K/mm3 (1.96-9.15); NEUTROPHILS PERCENT AUTO 78 % (41-73)
--- NOTE | 2018-11-05 05:58 | NUR ---
PT HAVE INCREASING OXYGEN NEEDS, CURRENTLY ON 3.5 O2 VIA NC WITH SATS @92%. PT SHAKING AND FEBRILE, CONTINUOUS COUGH. CALL PLACED TO HOSPITALIST. ORDER FOR STAT ABG AND REVIEW OF MORNINGS XRAY AND ORDERS TO FOLLOW NEEDED.
[2018-11-05 06:09] LABS: PCO2 Arterial 29.8 mmHg (35-45); PO2 Arterial 54.9 mmHg (80-100); pH Blood Arterial 7.47 (7.35-7.45)
--- NOTE | 2018-11-05 06:15 | NUR ---
SHIFT SUMMARY PT RESPONSIVE TO VERBAL STIMULI BY OPENING HIS EYES, PT FAILS TO RESPOND VERBALLY TO ANY QUESTIONS EXCEPT "ARE YOU IN PAIN", IN WHICH HE CONSISTENTLY NODS HIS HEAD NO AND SAYS "NO". PT CURRENTLY ON 3LNC WITH O2 SATS OF 92%. PT TREATED WITH 10MG HYDRALAZINE FOR CONTINUED HYPERTENSION AND REMAINS TACHYCARDIC WITH HR 130'S-140'S. TMAX 99.1, PT CONTINUES TO SHIVER WHICH APPEARS VISIBLY DIFFERENT THAN ETOH W/D TREMORS. PT HAD 2 LARGE INCONTINENT VOIDS AND REMAINS IN ATTENDS. BT HYPOACTIVEX4. SEE PREVIOUS NOTES FROM THIS SHIFT. WILL REPORT TO DAYSMTFT NURSE.
--- NOTE | 2018-11-05 07:36 | NUR ---
ASSUMPTION OF CARE I ASSUMED CARE OF THIS PT AT 0700. PT IS SLEEPING IN BED, AROUSES TO VERBAL STIMULI. PT IS TACHYCARDIC, HYPERTENSIVE AND TACHYPNEIC, 02 REQUIREMENTS INCREASED FROM 3L TO 5L VIA NC, 02 90-92%. COPIUS AMOUNTS OF SECRETIONS SUCTIONED FROM BACK OF THROAT. CRACKLES TO BASES OF LUNGS. DR QUIÑONES PAGED REGARDING CONCERNS.
--- NOTE | 2018-11-05 07:45 | NUR ---
TEMPERATURE 102.2 REMOVED 1 BLANKET FROM PT, LEAVING 1 BLANKET COVERING LOWER PART OF BODY ONLY.
--- NOTE | 2018-11-05 07:46 | NUR ---
NOTIFIED DR QUIÑONES OF CONCERNS, WILL BE IN SHORTLY TO EVALUATE PT.
--- NOTE | 2018-11-05 08:30 | NUR ---
TEMPERATURE 101.7 REMOVED REMAINING BLANKET AND APPLIED TOP SHEET FOR COVER/PRIVACY.
--- NOTE | 2018-11-05 11:42 | NUR ---
PT AWAKE BUT DROWSY, EVALUATED PTS COMFORT LEVEL, PT STS HE IS COMFORTABLE AND STS HE JUST WANTS TO SLEEP.
--- NOTE | 2018-11-05 14:05 | NUR ---
ORAL CARE PROVIDED AT 1215, PT COUGHED ON SMALL AMOUNT OF LIQUID. PT BIT DOWN ON SWAB, NOT FOLLOWING DIRECTIONS, CHEWED FOAM ON SWAB IN HALF. ALL PIECES REMOVED FROM MOUTH. UNABLE TO ORALLY SUCTION PT DUE TO BITING ON CATHETER, NT SUCTION PROVIDED. LARGE AMOUNT OF SECRETIONS SUCTIONED. PT TOLERATED PROCEDURE WELL. BED BATH PROVIDED AT 1300. PT COMPLAINS OF PAIN DURING REPOSITIONING FOR BATH AND LINEN CHANGE. LARGE AMOUNT OF URINE PRESENT IN ATTENDS, CONDOM CATH PLACED ON PT. 1345 PT A LITTLE MORE RESPONSIVE AND MOANING, ASKED IF PT WAS IN PAIN, PT STS "I AM NOT IN PAIN, I AM JUST WAKING UP".
--- NOTE | 2018-11-05 15:42 | NUR ---
WHILE IN PTS ROOM, I NOTICED PT HAD AN APNEIC PERIOD DURING SLEEP. O2 SATURATIONS DECREASED TO 80%, USED VERBAL STIMULATION AND GENTLE SHAKE TO WAKE PT UP. PT STARTED BREATHING AND 02 SATS RECOVERED IN LESS THAN 20 SECONDS.
--- NOTE | 2018-11-05 18:07 | NUR ---
SHIFT SUMMARY OVERALL PT IMPROVED THIS SHIFT. MAINTENANCE FLUIDS AND ABX STARTED EARLY THIS SHIFT, VITAL SIGNS IMPROVED SOON AFTER. HR NOW 90'S-110, TEMP 99.7, PT REMAINED TACHYPNEIC T/O SHIFT. PT AWAKE FOR SOME OF SHIFT, SPEECH GARBLED. PT HAS A WEAK COUGH AND UNABLE TO CLEAR SECRETIONS, NT SUCTIONED NEEDED. CONDOM CATH PLACED THIS SHIFT WITH GOOD URINE OUTPUT. BREIF APNEIC PERIODS DURING SLEEP INCREASED DURING END OF SHIFT, 02 SATURATIONS RECOVER QUICKLY, 2L 02 VIA NC PLACED ON PT. TORADOL PROVIDED FOR CPOT OF 4.
--- NOTE | 2018-11-05 20:28 | NUR ---
ASSUMED CARE OF PT, REPORT RCV'D FROM DIAMOND, RN AND ANNITA RN. PT ALERT TO VERBAL STIMULI, PT MUMBLES IN RESPONSE TO QUESTIONS AND IS SLOW TO RESPOND. LUNG SOUNDS CLEAR T/O, DIM BASES. PT CURRENTLY ON 2L NC WITH O2 SATS OF 93%,WEAK COUGH, WITH PERIODS OF APNEA WHILE SLEEPING. CONDOM CATH SECURELY IN PLACE DRAINING CLEAR CARLOS URINE. SEE FULL SHIFT ASSESSMENT.
--- NOTE | 2018-11-06 01:10 | NUR ---
MID SHIFT ASSESSMENT PT PULLED CONDOM CATH OFF AND LEAKED URINE IN BED. DURING BEDDING CHANGE PT STATED THAT HE WAS "COLD", ASKED PT IF HE KNEW WHERE HE WAS AND PT RESPONDED "I DON'T KNOW", PT REORIENTED AND ASKED IF HE KNEW WHY HE WAS IN THE HOSPITAL, PT RESPONDED "I THINK" WITH NOTHING FURTHER. WHEN ASKED ABOUT PAIN, PT MUMBLED "SHOULDER". MEDICATED PER EMAR FOR PT'S PAIN PRIOR TO BEDDING CHANGE. PT REMAINS ON 3L NC AND HAS WEAK COUGH. NG SUCTIONING APPROPRIATE, THICK WHITE/YELLOW OUTPUT.
[2018-11-06 04:06] LABS: Hematocrit 26.9 % (37.0-53.0)
[2018-11-06 04:31] LABS: Albumin, Blood 1.9 g/dL (3.4-5.0); Anion Gap 8 mmol/L (6-16); Blood Urea Nitrogen 8 mg/dL (8-24); Bun/Creatinine Ratio 14.5 (12.0-20.0); CO2, Blood 23 mmol/L (21-32); Calcium, Blood 7.6 mg/dL (8.5-10.1); Chloride, Blood 113 mmol/L (98-108); Creatinine, Blood 0.55 mg/dL (0.60-1.20); Glomerular Filtration Rate >60 (60-); Glucose, Blood 90 mg/dL (70-99); Phosphorus, Blood 3.2 mg/dL (2.5-4.9); Sodium, Blood 144 mmol/L (136-145)
--- NOTE | 2018-11-06 06:17 | NUR ---
SHIFT SUMMARY NO ACUTE CHANGES OVERNIGHT. PT CONTINUES TO BE ALERT ONLY TO SELF. PT MOANS, MUMBLES, AND SAYS "OH BOY" WITH PERIODS OF CLARITY. PT ABLE TO EXPRESS THAT HE WAS COLD AND OCCASIONS WHEN HE HAD PAIN. PT MEDICATED PRIOR TO BEDDING CHANGE. PT CURRENTLY ON RA WITH SATS 95-98%. NG SUCTIONING PERFORMED ON 2 OCCASIONS WITH SMALL AMOUNT OF THICK WHITE SPUTUM OUT. PT CONTINUES TO HAVE SHALLOW TACHYPNEIC BREATHING WITH WEAK COUGH. PT MOSTLY SINUS RHYTHM WITH PERIODS OF SIT. TREATED ONE TIME WITH HYDRALAZINE D/T SBP>180. CONDOM CATH PATENT AND DRAINING, 825 CARLOS URINARY OUTPUT. BED IN LOW LOCKED POSITION WITH SIDERAILS UP, BED ALARM ON. PLEASE SEE PREVIOUS NOTES FROM THIS SHIFT. WILL REPORT TO DAYSHIFT NURSE.
--- NOTE | 2018-11-06 08:00 | NUR ---
BEGINNING OF SHIFT Assumed care at 0700. Bedside report received from Brennen BLOOM. Pt on room air, SpO2 99%. Pt has frequent, loose cough. Nonproductive. Pt opens eyes to verbal stimulus. Speaks to this RN, however speech is difficult to understand. Pt able to communicate "My feet are cold". Pt does not provide responses when asked what his name and date of are. Pt does not zookeeper this RN's hands when instructed to do. Pt in bed, moaning. Plan to medicate for pain. This RN placed call to Dr Ann to clarify new orders for PO meds as pt is strict NPO due to suspected aspiration. Provider stated plan for ST to see pt.
--- NOTE | 2018-11-06 08:15 | NUR ---
PAIN Pt asleep in bed, no longer moaning or indicating pain. No pain meds given. Will continue to reassess.
--- NOTE | 2018-11-06 08:43 | NUR ---
VISITOR Pt's sister, Yelitza, at bedside. Update given to sister. This RN inquired about pt's baseline level of functioning. Pt lives independently, with his sister as his neighbor. 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 Pt typically goes grocery shopping, pays bills, and cooks meals for himself.
--- NOTE | 2018-11-06 09:15 | NUR ---
DR QUIÑONES AT BEDSIDE Plan of care discussed with provider. PO meds to be held until ST can see pt. This RN inquired about ortho consult for broken shoulder. Provider stated not necessary to reintroduce ortho into plan of care at this time.
--- NOTE | 2018-11-06 10:43 | NUR ---
ST IN TO SEE PT Recommends no liquids. Pt to remain NPO at this time.
--- NOTE | 2018-11-06 11:35 | NUR ---
UPDATE Pt following directions. Answering questions for staff. Pt remains on room air.
--- NOTE | 2018-11-06 13:25 | NUR ---
UPDATE GIVEN TO DR QUIÑONES Provider called unit for update on pt. Notified provider that ST ordered for pt to remain NPO, however meds crushed in applesauce is okay. Provider stated she would change metoprolol order. Plan of care discussed. Agreed that pt would be appropriate for surgical floor. [facility] plan to work with patient.
--- NOTE | 2018-11-06 14:53 | NUR ---
CONDOM CATHETER REMOVED Attends in place C/D/I at this time.
--- NOTE | 2018-11-06 17:02 | NUR ---
SUMMARY At this time, pt is A&O x 1. Pt reoriented several time throughout shift but continues to forget current location. Pt able to have conversation with staff, answering questions appropriately and make needs known. Pt on room air. Pt has not required NT suctioning this shift. Afebrile. SR-ST per heart monitor. HR 95-105 at rest, 105-115 while pt is restless. Pt OOB with physical therapy. PAIN COORDINATOR and this RN returned pt to bed. Pt had difficulty following direction and required maximal assist. Significant bruising and some swelling noted to RUE. Color, sensation, pulses, capillary refill equal BUE. Right arm in immobilizer/sling for entire shift. Condom catheter no longer in place. Pt incontinent of urine. Pt has had two large incontinent voids of urine. Attends C/D/I at this time. No BM this shift. Clinimix infusing per orders into CHANO powerglide. Bed in lowest position. Call light in reach, however pt does not utilize it and instead calls out when he requires assistance. Pt surgical floor status with telemetry. Will continue to closely monitor until care handoff and bedside report with oncoming RN.
--- NOTE | 2018-11-06 18:20 | NUR ---
PT TO BE TRANSFERRED TO ROOM 348 Report given to Lala BLOOM. Message left for Thahn, pt's sister, to notify of transfer.
--- NOTE | 2018-11-06 18:45 | NUR ---
PT. ARRIVED TO FLOOR VIA BED, SETTLED PT. IN AND REPORTED TO ONCOMING RN.
--- NOTE | 2018-11-07 04:18 | NUR ---
SHIFT SUMMARY ORIENTED TO SELF WITH PERSISTANT CONFUSION. UNABLE TO ORIENT. REPEATES "I'VE GOT TO GET OUT OF HERE". REMINDED IN HOSPITAL SEVERAL TIMES AND WHY HE IS HERE; NO REPONSE IN RETURN. MEDICATED PER NGHIAWA X1. CLIMIMIX CONTINUED TO INFUSE W/O COMPLICATION. FREQUENT ATTENDS CHANGES. VERY ACTIVE IN BED. HYPERTENSIVE WELL ELEVATED HR, PRIOR TO BEDTIME MED; WILL RE-CHECK. ORDER RECEIVED TO CONINUE TELE; RUNNING SINUS TACH, PER PCU RADAR OPERATOR. NO OHTER ACUTE CHANGES OVERNIGHT. BED REMAINS IN LOWEST POSITION; ALARM ON. CALL LIGHT IN REACH. WCTM. REPORT TO ONCOMING RN.
[2018-11-07 09:17] LABS: Anion Gap 3 mmol/L (6-16); Blood Urea Nitrogen 9 mg/dL (8-24); Bun/Creatinine Ratio 18.3 (12.0-20.0); CO2, Blood 24 mmol/L (21-32); Calcium, Blood 7.5 mg/dL (8.5-10.1); Chloride, Blood 110 mmol/L (98-108); Creatinine, Blood 0.49 mg/dL (0.60-1.20); Glomerular Filtration Rate >60 (60-); Glucose, Blood 114 mg/dL (70-99); Phosphorus, Blood 2.5 mg/dL (2.5-4.9); Potassium, Blood 3.1 mmol/L (3.5-5.5); Sodium, Blood 137 mmol/L (136-145)
[2018-11-07 09:29] LABS: BASOPHILS ABSOLUTE AUTO 0.03 K/mm3 (0.00-0.23); BASOPHILS PERCENT AUTO 0 % (0-2); EOSINOPHILS ABSOLUTE AUTO 0.07 K/mm3 (0.00-0.68); EOSINOPHILS PERCENT AUTO 1 % (0-6); Hematocrit 26.7 % (37.0-53.0); Hemoglobin 8.9 g/dL (13.5-17.5); IMMATURE GRAN ABSOLUTE AUTO 0.11 K/mm3 (0.00-0.10); IMMATURE GRAN PERCENT AUTO 2 % (0-1); LYMPHOCYTES PERCENT AUTO 14 % (21-46); MONOCYTES ABSOLUTE AUTO 0.76 K/mm3 (0.16-1.47); MONOCYTES PERCENT AUTO 10 % (4-13); Mean Corpuscular HGB 32.1 pg (26.0-34.0); Mean Corpuscular HGB Conc 33.3 g/dL (31.5-36.5); Mean Corpuscular Volume 96 fL (80-100); Mean Platelet Volume 8.9 fL (9.1-12.4); NEUTROPHILS ABSOLUTE AUTO 5.43 K/mm3 (1.96-9.15); NEUTROPHILS PERCENT AUTO 73 % (41-73); Platelet Count 261 K/mm3 (150-400); RDW Coefficient Variation 12.9 % (11.7-14.2); RDW Standard Deviation 45.8 fL (35.1-46.3); Red Blood Cell Count 2.77 M/mm3 (4.30-5.90)
--- NOTE | 2018-11-07 18:00 | NUR ---
PT. LYING IN BED AT THIS TIME REACHING FOR THE CEEILING, HAS HAD HALLUUCINATIONS TODAY MOSTLY VISUAL. NOT DIRECTABLE. CONSTANTLY THROWING LEGS OVER THE SIDE OF THE BED TRYING TO GEET OUT OF BED. PULLING AT ARM IMMOBILIZER, AND IV'S. NOTED PT. COUGHING AND CHOKING WHEN TAKING MEDS CRUSHED IN APPLESAUCE.
--- NOTE | 2018-11-08 06:11 | NUR ---
SHIFT SUMMARY PT WAS AGITATED AT THE BEGINNING OF SHIFT, TRYING TO GET OUT OF BED. HALDOL WAS GIVEN ONCE, WHICH SETTLED THE PT DOWN. PT IS ORIENTED TO SELF ONLY. PT HAD A FEVER IN THE AGRICULTURAL INSPECTOR AND BC THE PT IS A HUGE ASPIRATION RISK, THIS RN GOT A ONE TIME RECTAL TYLENOL. OTHER VITALS ARE STABLE AT THIS TIME. MD WAS ALSO MADE AWARE OF PT'S LETHARGY, BUT THINKS IT IS FROM THE HALDOL GIVEN EARLIER. PT IS INCONTINENT AND CHANGED NEEDED. WILL CONTINUE TO MONITOR PT.
[2018-11-08 08:56] LABS: BASOPHILS ABSOLUTE AUTO 0.06 K/mm3 (0.00-0.23); BASOPHILS PERCENT AUTO 1 % (0-2); EOSINOPHILS ABSOLUTE AUTO 0.07 K/mm3 (0.00-0.68); EOSINOPHILS PERCENT AUTO 1 % (0-6); Hematocrit 27.6 % (37.0-53.0); Hemoglobin 9.3 g/dL (13.5-17.5); IMMATURE GRAN ABSOLUTE AUTO 0.35 K/mm3 (0.00-0.10); IMMATURE GRAN PERCENT AUTO 4 % (0-1); LYMPHOCYTES ABSOLUTE AUTO 1.01 K/mm3 (0.84-5.20); LYMPHOCYTES PERCENT AUTO 12 % (21-46); MONOCYTES ABSOLUTE AUTO 0.76 K/mm3 (0.16-1.47); MONOCYTES PERCENT AUTO 9 % (4-13); Mean Corpuscular HGB 32.6 pg (26.0-34.0); Mean Corpuscular HGB Conc 33.7 g/dL (31.5-36.5); Mean Corpuscular Volume 97 fL (80-100); Mean Platelet Volume 8.8 fL (9.1-12.4); NEUTROPHILS ABSOLUTE AUTO 6.52 K/mm3 (1.96-9.15); NEUTROPHILS PERCENT AUTO 74 % (41-73); Platelet Count 294 K/mm3 (150-400); RDW Coefficient Variation 13.2 % (11.7-14.2); RDW Standard Deviation 47.1 fL (35.1-46.3); Red Blood Cell Count 2.85 M/mm3 (4.30-5.90); White Blood Cell Count 8.77 K/mm3 (4.00-11.30)
[2018-11-08 09:14] LABS: Anion Gap 6 mmol/L (6-16); Blood Urea Nitrogen 12 mg/dL (8-24); Bun/Creatinine Ratio 22.1 (12.0-20.0); CO2, Blood 23 mmol/L (21-32); Calcium, Blood 7.6 mg/dL (8.5-10.1); Chloride, Blood 110 mmol/L (98-108); Creatinine, Blood 0.54 mg/dL (0.60-1.20); Glomerular Filtration Rate >60 (60-); Glucose, Blood 117 mg/dL (70-99); Potassium, Blood 3.7 mmol/L (3.5-5.5); Sodium, Blood 139 mmol/L (136-145)
--- NOTE | 2018-11-08 13:36 | NUR ---
PT. UP IN RECLINER, FAMILY IN ROOM. PT. INTERACTING VERY WELL WITH FAMILY. LISTENING TO MUSIC AND TRYING TO SING ALONG. MUCH MORE ALERT THAN THIS AM. SPEECH STILL SLURRED AND CONFUSED.
--- NOTE | 2018-11-08 18:18 | NUR ---
PT. REQUESTED BACK TO BED AFTER BREATHING TREATMEN. PT. ATTENDS CHANGED, PT LET US KNOW HE THROUGHT HE WAS PEEING HIMSELF, WHIICH HE HAD. PT. SKIN REMAINS CD&I. STARTED ON PPN AT 1700 AND BLOOD SUGARS ARE TO BE DONE EVERY 6 HOURS. TO STARTT AT MIDNIGHT.
--- NOTE | 2018-11-09 04:22 | NUR ---
SHIFT SUMMARY PT IS ALERT AND ORIENTED TO SELF. PT IS MUCH MORE AWARE AND ABLE TO CONVERSE WITH STAFF TO MAKE NEEDS KNOWN. PT IT UP TO THE COMMODE A HEAVY TWO ASSIST WITH GAIT BELT. NO CALLS WERE RECIEVED ON TELEMETRY THIS SHIFT. NO COMPLAINTS OF PAIN OR SOB. PT IS NOW ABLE TO USE URINAL WITH HELP FROM STAFF AND ONLY HAD A COUPLE EPISODES OF INCONTINENCE AT THE BEGINNING OF THE SHIFT. PT VERBALIZED FRUSTRATION WITH NPO STATUS, BUT UNDERSTANDS. ORAL CARE WAS PROVIDED. NO OTHER COMPLAINTS FROM PT. PT NOTED TO HAVE A TEMP OF 100.2. WILL MONITOR TEMPERATURE CLOSELY. ALL OTHER VSS. WILL CONITNUE TO MONITOR.
[2018-11-09 05:09] LABS: Albumin, Blood 1.8 g/dL (3.4-5.0); Anion Gap 4 mmol/L (6-16); Blood Urea Nitrogen 13 mg/dL (8-24); Bun/Creatinine Ratio 22.9 (12.0-20.0); CO2, Blood 26 mmol/L (21-32); Calcium, Blood 7.4 mg/dL (8.5-10.1); Chloride, Blood 108 mmol/L (98-108); Creatinine, Blood 0.57 mg/dL (0.60-1.20); Glomerular Filtration Rate >60 (60-); Glucose, Blood 119 mg/dL (70-99); Phosphorus, Blood 3.3 mg/dL (2.5-4.9); Potassium, Blood 3.8 mmol/L (3.5-5.5); Sodium, Blood 138 mmol/L (136-145); Triglycerides 77 mg/dL (30-160)
--- NOTE | 2018-11-09 16:30 | NUR ---
Clinical Visit: Pt denies pain at this time. He is alert, forgetful, [facility] Re[facility]. Discussed current illness. Instructed that he is recieving nutrition through an IV at this time, but he may require a feeding tube surgically placed in his stomach to be fed. He states that he doesn't want to live like that, but may accept it for a while. Pt reports that he has been independent his whole life, lives alone, takes care of his home. Family not available, call attempted. No personal pt information left on message machine, but requested a call back and instructed that it is not urgent. Will follow up with pt tomorrow.
--- NOTE | 2018-11-09 17:38 | NUR ---
SHIFT SUMMARY PT AXO TO SELF THOUGH IS [place] AND EXTREMELY FORGETFUL. PT STRICT NPO, SEE SWALLOW EVAL. PPN INFUSING PER EMAR. PT UP TO CHAIR THROUGHOUT THE DAY. MEDICATED FOR PAIN PER EMAR. PT UPSET THAT HE CANNOT DRINK A SODA. PT APPEARS TO UNDERSTAND RATIONALE REGARDING NPO BUT THEN QUICKLY FORGETS. NO ACUTE CHANGES THIS SHIFT. PT HAS BEEN AWAKE AND ALERT THROUGHOUT THE SHIFT. BED IN LOW POSITION, CALL LIGHT WITHIN REACH, CHAIR ALARM ON. IV PATENT AND INFUSING. R. ARM IN SLING, SWOLLEN.
--- NOTE | 2018-11-10 03:59 | NUR ---
SHIFT SUMMARY PT IS ALERT AND CONFUSED. AROUND 0230, PT BEGAN TO CALL OUT WITH INCREASING FREQUENCY AND BEGAN TO ATTEMPT TO GET OUT OF BED. PT WAS GIVEN HALDOL PER APR, WHICH HELPED TO CALM THE PT DOWN. PT COMPLAINS OF MINOR ARM PAIN, BUT DIDN'T WANT TORDAL WHEN IT WAS OFFERRED. POWDER WAS PLACED IN THE PT'S RIGHT ELBOW CREASE IT IS GETTING MOIST AND RED FROM BEING CONFINED IN THE SLING. PT HAS NO OTHER COMPLAINTS AT THIS TIME AND IS TOLERATING THE PPN WELL. VSS. PT IS ABLE TO VERBALIZE WHEN HE NEEDS THE TOILET AND HASN'T BEEN INCONTINENT THIS SHIFT. WILL CONTINUE TO MONITOR.
[2018-11-10 05:04] LABS: Hematocrit 28.8 % (37.0-53.0); Hemoglobin 9.6 g/dL (13.5-17.5); Mean Corpuscular HGB 32.8 pg (26.0-34.0); Mean Corpuscular HGB Conc 33.3 g/dL (31.5-36.5); Mean Corpuscular Volume 98 fL (80-100); Mean Platelet Volume 9.1 fL (9.1-12.4); Platelet Count 367 K/mm3 (150-400); RDW Coefficient Variation 13.7 % (11.7-14.2); RDW Standard Deviation 48.3 fL (35.1-46.3); Red Blood Cell Count 2.93 M/mm3 (4.30-5.90); White Blood Cell Count 8.56 K/mm3 (4.00-11.30)
[2018-11-10 05:20] LABS: Alanine Aminotransfer (ALT/SGP 15 U/L (12-78); Albumin/Globulin Ratio 0.6 (0.8-1.8); Alk Phos 43 U/L (50-136); Anion Gap 6 mmol/L (6-16); Aspartate Aminotrans (AST/SGOT 17 U/L (12-37); Bilirubin, Total 1.1 mg/dL (0.1-1.0); Blood Urea Nitrogen 10 mg/dL (8-24); Bun/Creatinine Ratio 17.4 (12.0-20.0); CO2, Blood 24 mmol/L (21-32); Calcium, Blood 7.6 mg/dL (8.5-10.1); Chloride, Blood 108 mmol/L (98-108); Creatinine, Blood 0.57 mg/dL (0.60-1.20); Globulin, Blood 3.4 g/dL (2.2-4.0); Glomerular Filtration Rate >60 (60-); Glucose, Blood 105 mg/dL (70-99); Potassium, Blood 3.9 mmol/L (3.5-5.5); Sodium, Blood 138 mmol/L (136-145); Total Protein, Blood 5.4 g/dL (6.4-8.2)
--- NOTE | 2018-11-10 10:05 | NUR ---
Clinical Visit: Spoke to Dr. Concepcion. Pt may need temporary feeding tube and there may be a chance that he could eventually learn how to swallow again with therapy. It is approching an appropriate time to make these decisions soon. Pt is oriented to place, and self. Can name his birthday, names of his sisters. Reminded of the situation. He reports "90/10" pain, related to recent transfer into wheelchair for imaging studies. He states that his pain is 3/10 at rest, without movement, however he is in much pain now. States that he doesn't want to live with a PEG tube. May not be completely understanding the concept of the temporary placment of the tube. Call placed to Thanh, pt's sister. Message left. Call placed to Nancy, pt's sister. She answers and there is a productive conversation. She reports that pt was independent prior to admission and current problems. He has his own home, able to do all ADLs, pay bills. Apparently he admitted to her yesterday, "I may have messed up." She does not believe he would want to live with a PEG tube, even on a temporary basis, however, she will discuss it with sister, Thanh. Thanh is unavailable at this time for conversation, but will be checking in later today. Plan on following up with sisters, just to get their imput. Nancy doesn't have specific concerns at this time, other than expected stress of the situation. Will remain available.
--- NOTE | 2018-11-10 18:00 | NUR ---
PT AWAKE THROUGHOUT THIS SHIFT. PT CALM AND COOPERATIVE, FOLLOWS DIRECTIONS WELL. PT FORGETFUL AND TRIES TO USE HIS RT INJURED ARM. ARM APPEARED IRREGULAR NEAR SHOULDER THIS AFTERNOON AND DR OCAMPO WAS NOTIFIED. XRAY OF THE AFFECTED AREA WAS ORDERED AND DR SULLIVAN WAS CONSULTED. DR SULLIVAN STATED THAT HE DID NOT BELIEVE THE PT A GOOD CANDIDATE FOR SURGERY AT THIS TIME. SHOULDER STABLILIZING SLING WAS RECOMMENDED. SLING WAS REPLACED AND ARM APPEARANCE DRASTICALLY IMPROVED. PT COUGHING THROUGHOUT THIS SHIFT. SPEECH EVAL IDENTIFIED PT IS ASPIRATING. PT REPOSITIONED TO UPRIGHT POSITION AND EDUCATED THAT COUGH IS LIKELY DUE TO FLUIDS IN WINDPIPES. PT MAINTAINED NPO THROUGHOUT THIS SHIFT ORDERED. PT/OT IN TO WORK WITH THIS PT THIS SHIFT. PT CONTINUED ON PPN ORDERED. WILL CONTINUE TO MONITOR.
--- NOTE | 2018-11-11 03:57 | NUR ---
SHIFT SUMMARY R HUM FX IS VERY SWOLLEN 2+ AND BRUISED FROM PREVIOUS FALL. R LOWER BACK/FLANK AREA ALSO BRUISED. R ARM IS IN IMMOBILIZER SLING. PT RATES PAIN AT "40". LS COARSE, PT DENIES SOB. TELE READ SINUS TACH IN THE 120'S, PT DID GET UP TO 130'S WITH ACTIVITY/AGITATION. PPN RUNNING @ 105 IN L AC. STRICT NPO FOR ASP PRECAUTIONS. PT REFUSES PEG TUBE PLACEMENT. PT, OT, AND ST ON CONSULT. HX OF ALCOHOLISM, NO LONGER DOING CIWA. VSS IMPROVED THIS AM AFTER PT FINALLY BECAME COMFORTABLE. TORADOL GIVEN @ 0200. [facility].
--- NOTE | 2018-11-11 18:28 | NUR ---
PT AWAITING PLACEMENT, HE CALLS OUT FOR HELP WITH THE URINAL, MOSTLY CONTINENT TODAY. DOES NOT USE CALL SOSA. NO ACUTE CHANGES NOTED THIS SHIFT. WILL CONTINUE TO MONITOR AND REPORT TO ONCOMING RN
--- NOTE | 2018-11-12 04:27 | NUR ---
SHIFT SUMMARY. NO ASSESSMENT CHANGES. ORIENTED TO SELF ONLY. NO C/O PAIN. R ARM STILL IN SLING, PT REMAINS VERY BRUISED ON R SIDE. PPN GOING @ 105 IN L AC. TELE SHOWS SINUS TACH AT 111. STILL STRICT NPO. STILL REFUSING PEG TUBE. VSS.
--- NOTE | 2018-11-12 18:22 | NUR ---
[facility] care visit and two lengthy phone calls with pt's Niece, Traci [phone]. Time spent arranging for family meeting with pt's two sisters, who are in their late 70's in person and two nieces in [place] by conference call tomorrow at 10 am. Explained pt's comorbidities and trajectory of anticipated decline with previous traumatic head injury at age 21, current etoh dementia and malnutrition. Niece acknowledges that her uncle would not want a feeding tube and despite confusion and inability to participate in his care or follow instructions pt cont to state he does not want a feeding tube. Discussed options and benefits/burdens of both feeding tube and honoring pt's wishes and allowing EOL care, s/s management and supportive care. Pt remains NPO due to aspiration. He has not cleared cognitively since admission 2 weeks ago. Niece and family feel pt may have hit head and niece reports pt has always had issues due to a traumatic head injury at age 21. He did recover enough to hold down a job and live independently up to the time just prior to this admission. Pt lives on his sister Yelitza's property. It does not appear that he could return to his prior living situation at this time. Pt is a . VM left for [facility] to see if pt is service connected and/or eligible for assistance with placement with or without hospice care. We will follow up on that tomorrow when they return and plan to meet with two sisters and two nieces by conference call tomorrow at 10 am. Went to assess pt in room. Room is darkened and he is lying flat, supine in bed. He did not wake to voice and I did not disturb him. He did not appear agitated or in pain in his sleep.
--- NOTE | 2018-11-12 18:32 | NUR ---
NO ACUTE CHANGES NOTED THIS SHIFT. DID RECEIVE A T/C FROM PT'S ROSA THIS AM. SHE WOULD LIKE TO SPEAK WITH PALLIATIVE CARE. CONTACT INFORMATION GIVEN TO RICHARD BERRY, PALLIATIVE CARE RN. MESSAGE THIS AFTERNOON FROM RICHARD SAYS FAMILY CONFERENCE IS ARRANGED FOR TOMORROW. WILL CONTINUE TO MONITOR AND REPORT TO ONCOMING RN
--- NOTE | 2018-11-13 03:59 | NUR ---
SHIFT SUMMARY NO ASSESSMENT CHANGES. DENIES PAIN, NAUSEA, AND SOB. R ARM STILL IN IMMOBILIZER SLING. PPN @ 105. TELE READS SINUS TACH IN THE 100'S. VSS ON RA. PLAN IS TO DISCUSS PEG TUBE WITH FAMILY AND PALLIATIVE CARE TODAY.
--- NOTE | 2018-11-13 11:36 | NUR ---
SEIZURE LATE ENTRY FOR 0857 PHYSICAL THERAPY WORKING WITH PT AND GETTING PT UP TO CHAIR. PT SAT IN CHAIR AND BECAME UNRESPONSIVE WITH EYES OPEN. PT'S HEAD TURNED TO RIGHT AND EYES WERE LOOKING UP TO RIGHT. PT BECAME VERY STIFF. IT LASTED 3 MINUTES AND THEN PT BECAME SLEEPY. PT DID WAKE UP AND WAS ABLE TO STATE HIS BIRTHDAY. DR. OCAMPO WAS CALLED AND NOTIFIED OF SEIZURE. OXYGEN WAS PLACED AT 3 LITERS DUE TO PT'S OXYGEN SATURATION AT 88%. PT'S OXYGEN SATURATION NOW 92% ON 3L. VS WNL. WILL CONTINUE TO MONITOR. CALL LIGHT IN REACH AND BED ALARM ON FOR SAFETY.
[2018-11-13 16:04] LABS: Anion Gap 7 mmol/L (6-16); Blood Urea Nitrogen 13 mg/dL (8-24); Bun/Creatinine Ratio 19.7 (12.0-20.0); CO2, Blood 23 mmol/L (21-32); Calcium, Blood 7.3 mg/dL (8.5-10.1); Chloride, Blood 99 mmol/L (98-108); Creatinine, Blood 0.66 mg/dL (0.60-1.20); Glomerular Filtration Rate >60 (60-); Glucose, Blood 98 mg/dL (70-99); Magnesium, Blood 1.9 mg/dL (1.6-2.4); Potassium, Blood 3.9 mmol/L (3.5-5.5); Sodium, Blood 129 mmol/L (136-145)
--- NOTE | 2018-11-13 17:58 | NUR ---
Pal care visit: Multiple phone conversations with pt's Niece, case conferences with pt's RN, this afternoon. Pt's head CT is negative for new/acute processes. Family informed. Assessed pt just after power glide had been inserted for continued iv therapy and fluids. Pt is moaning and restless. RN reports pt has been more restless and anxious after his seizure this am. Time spent talking to pt to soothe him. Report to on assessment and medications ordered for pain, anxiety and AL tylenol for fever reported by RN. Plan is for pt's sister to return in the am to discuss goals of care further and make some decisions re: feeding tube vs comfort care. Niece and sister informed on risks of aspiration, even own secretions, with or without the feeding tube. Long discussion again about pt's quality of life and what pt would want if he could tell us. Report given to Palliative Care RN following pt tomorrow.
--- NOTE | 2018-11-13 18:30 | NUR ---
SHIFT SUMMARY PT HAD A SEIZURE THIS AM AFTER GETTING INTO THE CHAIR WITH PT. PT HAS NOT HAD ANY OTHER EPISODES SINCE. PT IS VERY CONFUSED AND TRIES TO GET OUT OF THE BED WHEN AWAKE. PT DIFFICULT TO REDIRECT AT TIMES. PT CONTINENT/INCONTINENT OF URINE. PT C/O PAIN IN NECK AND RIGHT SHOULDER THIS EVENING. TYLENOL ORDERED AND ADMINISTERED RECATLLY PER EMAR. NO ACUTE CHANGES THIS SHIFT. WILL CONTINUE TO MONITOR AND REPORT TO ONCOMING RN. BED ALARM ON FOR SAFETY.
[2018-11-14 05:39] LABS: Anion Gap 7 mmol/L (6-16); Blood Urea Nitrogen 13 mg/dL (8-24); Bun/Creatinine Ratio 20.7 (12.0-20.0); CO2, Blood 23 mmol/L (21-32); Calcium, Blood 7.1 mg/dL (8.5-10.1); Chloride, Blood 101 mmol/L (98-108); Creatinine, Blood 0.63 mg/dL (0.60-1.20); Glomerular Filtration Rate >60 (60-); Glucose, Blood 109 mg/dL (70-99); Magnesium, Blood 2.2 mg/dL (1.6-2.4); Potassium, Blood 3.8 mmol/L (3.5-5.5); Sodium, Blood 131 mmol/L (136-145)
--- NOTE | 2018-11-14 06:27 | NUR ---
SUMMARY: PT BEGAN SHIFT VERY DROWSY BUT WAKEFUL TO VOICE. HE'S ORIENTED TO SELF ONLY AND DOESN'T USE CALL LIGHT BUT RATHER CALLS INTO HALLS FOR ASSIST. URINAL ASSIST PROVIDED AND ATTENDS CHANGED PRN FOR INCONTINENCE. TPN INFUSES W/IVF AND IV ABX RECIEVED INTERMITTENTLY T/O NOCTE. PT REMAINS NPO AND MOUTH CARE COMPLETED PRN. HE WAS NSR-S.TACH ON TELEMTRY, HR 90'S-100'S. PT HAS BEEN MORE SETTLED COMPARED TO REPORTS OF PT BEING FIGITY/RESTLESS AND PULLING AT LINES ON DAY SHIFT. HE SLEPT MOST OF NOCTE AND AWOKE TYPICALLY FOR TOILETING AND REPOSITIONING. LS ARE COARSE W/SPOW WNL ON 2L O2 VIA NC. NO SEIZURE ACTIVITY OBSERVED THIS SHIFT. VSS/AFEBRILE, NO ACUTE CHANGES. PT DENIED PAIN AND COMPLAINTS. WCTM AND REPORT TO DAY RN.
--- NOTE | 2018-11-14 14:52 | NUR ---
Pt visit this afternoon. Therapy just finishing working with Pt. Pt reports pain in his neck and shoulder area. Pt is pleasantly confused and reports having to have a BM. Spoke with bedside nurse Lucia and discussed case and reported Pt's pain. Lucia reports she will offer heat to the Pt's neck for pain management. Lucia reports Pt's sister Thanh was in visiting earlier this AM. Lucia will call palliative care if family comes back to visit. Spoke with Circular Sawyer Helper Hedy Reed and discussed case. Palliative Care will remain available.
--- NOTE | 2018-11-14 17:01 | NUR ---
SHIFT SUMMARY PT HAS BEEN AWAKE AND MORE ORIENTED THIS SHIFT. MEDICATED FOR RIGHT SHOULDER/ARM PAIN WITH TYLENOL PER EMAR THIS SHIFT. K-PAD USED FOR NECK PAIN. PT WORKED WITH PHYSICAL AND OCCUPATIONAL THERAPY THIS SHIFT. PT UP TO CHAIR THIS AFTERNOON AND USED BSC. PT USING SUCTION SELF AFTER THIS RN DEMONSTRATED TO PT HOW TO USE. PT DOES HAVE TO BE REMINDED AT TIMES. NO ACUTE CHANGES THIS SHIFT. CALL LIGHT IN REACH. WILL CONTINUE TO MONITOR AND REPORT TO ONCOMING RN.
--- NOTE | 2018-11-15 18:41 | NUR ---
NO ACUTE CHANGES NOTED. NO CURRENT COMPLAINTS OF PAIN OR DISCOMFORT NOTED. ORTHO CONSULTED AGAIN PER FAMILY REQUEST. PATIENT REMAINS NPO WITH PPN RUNNING. WILL CONTINUE TO MONITOR FOR CHANGES.
--- NOTE | 2018-11-16 05:33 | NUR ---
SHIFT SUMMARY PATIENT VERY AGITATED THROUGHOUT THE NIGHT. 1 DOSE HALDOL GIVEN WITH ONLY SLIGHT AMOUNT OF AHNGE IN AGITATION. PATIENT REPEATEDLY TRYING TO GET OUT OF BED WHILE PULLING OF IMMOBILIZER ON RIGHT ARM. PATIENT SCREAMING OUT AND CURSING THROUGH NIGHT. PATIENT ORIENTED TO SELF ONLY. LEFT POWERGLIDE INTACT. PATIENT CONTINENT AT TIMES AND REQUESTING TO GET UP BUT ALSO INCONTINENT IN BRIEF. WILL CONTINUE TO MONITOR
[2018-11-16 06:12] LABS: Triglycerides 155 mg/dL (30-160)
--- NOTE | 2018-11-16 13:20 | NUR ---
AWARE NO IV ASSESS AT THIS TIME. LEFT ARM ELEVATED TO DECREASE SWELLING AND FOR POSSIBLE POWERGLIDE PLACEMENT.
--- NOTE | 2018-11-16 17:29 | NUR ---
ALERT TO SELF. UNSTEADY ON FEET. YELLS OUT OFTEN "FILTER TANK TENDER" AND OTHER INAPPROPRIATE COMMENTS. NO IV ASSESS EVEN AFTER ULTRASOUND WAS USED WITH DR.JAIN BRIGHT. [facility]. RT ARM IN IMMOBILIZER. BRUISES T/O UPPER EXT. WCTM
--- NOTE | 2018-11-17 05:33 | NUR ---
SHIFT SUMMARY PATIENT SLEPT IN CHAIR UNTIL APPROXIMATELY 0500. PATEINT ORIENTED TO SELF ONLY BUT UNABLE TO RECALL BIRTHDATE. RETURNED PATIENT TO BED WITH 2 PERSON ASSIST AND GAIT BELT. LINENS CHANGED. PATIENT ABLE TO FOLLOW COMMANDS BETTER THAN PREVIOUS NIGHT SHIFTS. NO INSTANCES OF ANGER OR PATIENT BEING COMBATIVE. PATIENT HAS NO IV ACCESS AT THIS TIME.WILL CONTINUE TO MONITOR AND REPORT TO ONCOMING RN.
[2018-11-17 06:16] LABS: Anion Gap 9 mmol/L (6-16); Blood Urea Nitrogen 6 mg/dL (8-24); Bun/Creatinine Ratio 10.9 (12.0-20.0); CO2, Blood 22 mmol/L (21-32); Chloride, Blood 107 mmol/L (98-108); Creatinine, Blood 0.55 mg/dL (0.60-1.20); Glomerular Filtration Rate >60 (60-); Glucose, Blood 86 mg/dL (70-99); Potassium, Blood 3.7 mmol/L (3.5-5.5); Sodium, Blood 138 mmol/L (136-145)
--- NOTE | 2018-11-17 18:43 | NUR ---
ALERT TO SELF AND FAMILY. CONVERSING LITTLE MORE TODAY. MAKING SENSE SOMETIMES. IV INFUSING. BED IN LOW POSITION. DOES NOT USE CALL LIGHT. WAS IN TO SEE PATIENT ANF RELATIVES. JADIEL.
--- NOTE | 2018-11-18 05:38 | NUR ---
SHIFT SUMMARY: Pt alert and communicating needs through the night- does so by calling out rather than utilizing call button. Weak cough producing white sputum. O2 94 on RA. Edema to right arm, sling in place. Edema on left elbow. Foam pad placed over scabbed elbow preventatively. Both cont and incontinent of urine. No complaints of pain. Bed low, bed rails up, call button in reach.
--- NOTE | 2018-11-18 09:40 | NUR ---
TRANSPORTED VIA STRETCHER TO DIALYSIS. AWAKE, ALERT NO ACUTE DISTRESS.
--- NOTE | 2018-11-18 15:50 | NUR ---
MULTIPLE ATTEMPTS TO GET PT INTO CHAIR. PT REFUSED.
--- NOTE | 2018-11-18 17:24 | NUR ---
SHIFT SUMMARY CONFUSED, OX1; 2 PERSON ASSIST TO CHAIR. SISTER TO VISIT TODAY. DR. FRYE BY THIS A.M.; CLINAMIX AND LIPIDS INFUSING. CXR COMPLETED. COOPERATIVE. BED ALARM APPLIED. INCONT VS CONT. ATTENDS IN PLACE.
--- NOTE | 2018-11-19 04:37 | NUR ---
SHIFT SUMMARY: Pt awake much of the night. Calling out for assistance rather than using call light. Confused. Tries to be continent of urine, confused about how to use urinal- will at times request urinal and at times request a "rag" or tissues to place in brief to void. Redirects well. Continues with edema in right arm and left elbow. Right arm immobilized. Reported fx pain in shoulder and stated he would accept PRN. When PRN attempted to be administered pt. then refused PRN. Cont with 02 2l via NC. Frequently removes 02 NC. Coughs with turns- producing white thick sputum. Expiratory rhonchi auscultated in R lobes. Call button in reach, bed low.
[2018-11-19 06:03] LABS: BASOPHILS ABSOLUTE AUTO 0.04 K/mm3 (0.00-0.23); BASOPHILS PERCENT AUTO 1 % (0-2); EOSINOPHILS ABSOLUTE AUTO 0.12 K/mm3 (0.00-0.68); EOSINOPHILS PERCENT AUTO 2 % (0-6); Hematocrit 26.9 % (37.0-53.0); Hemoglobin 8.8 g/dL (13.5-17.5); IMMATURE GRAN PERCENT AUTO 4 % (0-1); LYMPHOCYTES ABSOLUTE AUTO 1.48 K/mm3 (0.84-5.20); LYMPHOCYTES PERCENT AUTO 20 % (21-46); MONOCYTES ABSOLUTE AUTO 0.91 K/mm3 (0.16-1.47); MONOCYTES PERCENT AUTO 12 % (4-13); Mean Corpuscular HGB 30.7 pg (26.0-34.0); Mean Corpuscular HGB Conc 32.7 g/dL (31.5-36.5); Mean Platelet Volume 9.2 fL (9.1-12.4); NEUTROPHILS ABSOLUTE AUTO 4.47 K/mm3 (1.96-9.15); NEUTROPHILS PERCENT AUTO 61 % (41-73); Platelet Count 802 K/mm3 (150-400); RDW Coefficient Variation 13.4 % (11.7-14.2); RDW Standard Deviation 45.6 fL (35.1-46.3); Red Blood Cell Count 2.87 M/mm3 (4.30-5.90); White Blood Cell Count 7.32 K/mm3 (4.00-11.30)
[2018-11-19 06:04] LABS: Mean Corpuscular Volume 94 fL (80-100)
[2018-11-19 06:28] LABS: Anion Gap 5 mmol/L (6-16); Blood Urea Nitrogen 10 mg/dL (8-24); CO2, Blood 25 mmol/L (21-32); Calcium, Blood 7.5 mg/dL (8.5-10.1); Chloride, Blood 105 mmol/L (98-108); Glomerular Filtration Rate >60 (60-); Glucose, Blood 97 mg/dL (70-99); Phosphorus, Blood 3.9 mg/dL (2.5-4.9); Potassium, Blood 4.1 mmol/L (3.5-5.5); Sodium, Blood 135 mmol/L (136-145)
--- NOTE | 2018-11-19 06:28 | NUR ---
Protonix not given due to possible LFA powerglide infiltration. R elbow edematous, Powerglide flushing with resistance, unable to withdraw blood. IV infusion of clinimix stopped. Charge nurse consulted.
--- NOTE | 2018-11-19 08:29 | NUR ---
PATIENT DID NOT EAT BREAKFAST THIS SHIFT DUE TO BEING NPO AT THSI TIME.
--- NOTE | 2018-11-19 13:14 | NUR ---
PATIENT DID NOT EAT LUNCH THIS SHIFT DUE TO BEING NPO AT THIS TIME.
--- NOTE | 2018-11-19 16:41 | NUR ---
summary PT IS CONFUSED, ORIENT TO SELF/FAMILY. HE HAS BEEN CALM, PLEASANT w TX. HE CONTINUES NPO R/T ASPIRATION, ST FOLLOWING. ORAL CARE PRN. R UE IN IMMOBILIZER, EDEMATOUS 2+. HE IS ABLE TO WIGGLE FINGERS, STATES NO N/T R ARM. CLINIMIX CONTINUES @ 100 ML/HR. L POWERGLIDE IV FAILED THIS AM, D/C'D. GAS PRODUCER START L WRIST 20GA. FAMILY STATE NO HX OXYGEN USE, TITRATED OFF, BIOX 93% RA, VSS.
--- NOTE | 2018-11-19 18:39 | NUR ---
PATIENT DID NOT EAT DINNER THIS SHIFT DUE TO BEING NPO AT THIS TIME.
--- NOTE | 2018-11-20 04:59 | NUR ---
SHIFT SUMMARY: Confused and cooperative. Communicating needs by calling out. Slept off and on through the night. Reports right arm pain only with movement, no pain at rest. Infiltration related swelling in left elbow improving, +1. Right arm fx related swelling continues, but appears somewhat improved compared to 11/18. Vehicle Body Maker strong bilaterally. Denies numbness and tingling in bilateral hands. Cont with weak cough producing small amts of white sputum. Frequent small voids through the night. on RA. No acute changes in condtion. Bed low, call button in reach.
--- NOTE | 2018-11-20 10:58 | NUR ---
Pt visit this AM. Pt is resting in bed with his eyes closed and appears comfortable. Attempted to wake Pt requesting to have discussion and Pt shakes his head from side to side indicating he does not want to have a conversation. Pt remains with his eyes closed. No S/S of distress at this time. Spoke with bedside nurse Yeny and discussed case. Spoke with Dr Giraldo and discussed case. Dr Giraldo reports Pt may benefit from Peg-Tube placed. This RN will attempt to call family and discuss case.
--- NOTE | 2018-11-20 12:17 | NUR ---
Pt visit this afternoon. Pt resting in bed with his eyes closed and appears comnfortable. Pt remains with his eyes closed during visit with his daughter Thanh. Discussed peg tube placement and Thanh reports her and her sister Nancy agree that Pt should have peg tube placement. Thanh also reports understanding of no guarantte of imporvement. Thanh states family will revisit goals of care if Pt does not improve. No other concerns reported at this time. Spoke with Dr Giraldo and relayed family's decision. Dr Giraldo will place provider consult. Spoke with bedside nurse Yeny and discussed case. Palliative Care will remain available.
--- NOTE | 2018-11-20 18:07 | NUR ---
SHIFT SUMMARY PT UP TO CHAIR WITH PHYSICAL THERAPY THIS AFTERNOON. PT TOLERATED ABOUT 3 HOURS UP IN CHAIR. PT BACK IN BED AT THIS TIME. PT MEDICATED FOR PAIN ONCE THIS SHIFT. NEW IV PLACED BY PROCEDURE NURSE. PT SEEN BY DR. MARLOW THIS AFTERNOON. SURGERY PLANNED FOR PEG PLACEMENT TOMORROW. NO OTHER CHANGES IN ASSESSMENT AT THIS TIME. VSS. WILL CONTINUE TO MONITOR UNTIL TURNOVER IS COMPLETE.
--- NOTE | 2018-11-21 07:17 | NUR ---
SHIFT SUMMARY PT HAD NO ISSUES NOTED. PT REMAINED NPO. PT IS CONFUSED BUT PLEASENT AND COOPERATIVE. PT CURRENTLY SLEEPING IN NO DISTRESS. CALL LIGHT IN REACH.
--- NOTE | 2018-11-21 09:28 | NUR ---
INTO SDS VIA [employer]. PT [place]. AWAKENS TO VOICE AND FOLLOWS COMMANDS, BUT DISORIENTED. SISTER TONI TO GIVE CONSENT OVER THE PHONE. THIS RN CONTACTED HER TO CONFIRM THAT SHE WILL BE AVAILABLE THIS AM. HISTORY AND ALLERGIES REVIEWED. NPO STATUS CONFIRMED. LUNGS WITH SCATTERED RHONCHI T/O-SATS>90% ON RA.
--- NOTE | 2018-11-21 09:52 | NUR ---
11/21/18 0952 Nusrat Hennessy [facility] ROOM #1 LOCATION.
--- NOTE | 2018-11-21 11:54 | NUR ---
PT RETURNED FROM SURGERY-LATE ENTRY PT RETURNED FROM SURGERY AT 1030. PT TRANSFERED TO BED. SATS CHECKED AT THIS TIME. PT WAS SATING AT 86% ON 6L O2 VIA NC. PT SWITCHED TO 10L O2 VIA NON-REBREATHER. PT INCREASED TO THE 92% AFTER 2 MINUTES ON NON-REBREATHER. PT TITRATED BACK DOWN TO 4L O2 VIA NC BY RT. PT TOLERATING WELL. PT SATING AT 98% ON 4L AT THIS TIME. OTHER VITALS STABLE. WILL CONTINUE TO MONITOR.
--- NOTE | 2018-11-21 13:10 | NUR ---
PT TITRATED DOWN TO RA. PT TITRATED BACK DOWN TO RA. SATING AT 94% WHILE SLEEPING
--- NOTE | 2018-11-21 18:42 | NUR ---
CHANGE IN PT CONDITION UPDATED VITALS TAKEN AT 1800. PT HAD NEW TEMP OF 100.2, HR IN THE 130S, & INCREASED CONFUSION. PT GIVEN TYLENOL ND & VITALS REASSESSED AT 1830. REASSESSMENT VITALS TEMP INCREASED TO 101.2, HR INCREASED TO 136, RESPIRATIONS 24, & CONFUSION REMAINS. DR. GRIFFIN CALLED & INFORMED OF PT CHANGE. TELE ORDERED. RATE & RHYTHM REPORTED TO DR. GRIFFIN AT [facility] IN THE 120S. STAT CULTURES ORDERED, STAT FLAGY & ROCEPHIN ORDERED PER DR. GRIFFIN. WILL CONTINUE TO MONITOR.
--- NOTE | 2018-11-22 06:22 | NUR ---
SHIFT SUMMARY PT REMAINS PLEASANTLY CONFUSED. PLACED IN RESTRAINTS FOR A COUPLE HOURS THIS EVENING DUE TO PT PULLING ON NEW PEG TUBE PLACEMENT. OUT OF RESTRAINTS AT THIS TIME. AFEBRILE THIS EVENING. PEG TUBE FLUSHED W/ 30 ML Q 4 HOURS. PT TOLERATED WELL. INSERTION SITE LOOKS CLEAN AND CLEAR OF INFECTION. R ARM REMAINS IN IMMOBOLIZER, SOME SWELLING BUT APPEARS IMPROVED FROM PREVIOUS SHIFTS. PT INCONTINENT/CONTINENT. PULLED HIS ATTENDS OFF ONCE THIS SHIFT AND VOIDED IN THE BED. CALLS OUT FOR THE URINAL AT TIMES. SLEPT OFF AND ON THROUGHOUT THE NIGHT. VSS. WILL CONTINUE TO MONITOR AND REPORT TO DAY RN.
[2018-11-22 09:34] LABS: Hematocrit 29.1 % (37.0-53.0); Hemoglobin 9.7 g/dL (13.5-17.5); Mean Corpuscular HGB 30.7 pg (26.0-34.0); Mean Corpuscular HGB Conc 33.3 g/dL (31.5-36.5); Mean Corpuscular Volume 92 fL (80-100); Mean Platelet Volume 8.8 fL (9.1-12.4); Platelet Count 893 K/mm3 (150-400); RDW Coefficient Variation 13.2 % (11.7-14.2); RDW Standard Deviation 45.1 fL (35.1-46.3); Red Blood Cell Count 3.16 M/mm3 (4.30-5.90); White Blood Cell Count 9.34 K/mm3 (4.00-11.30)
[2018-11-22 10:08] LABS: Albumin, Blood 2.2 g/dL (3.4-5.0); Anion Gap 7 mmol/L (6-16); Blood Urea Nitrogen 13 mg/dL (8-24); Bun/Creatinine Ratio 26.2 (12.0-20.0); CO2, Blood 23 mmol/L (21-32); Chloride, Blood 98 mmol/L (98-108); Glomerular Filtration Rate >60 (60-); Glucose, Blood 99 mg/dL (70-99); Phosphorus, Blood 5.3 mg/dL (2.5-4.9); Potassium, Blood 4.1 mmol/L (3.5-5.5); Sodium, Blood 128 mmol/L (136-145)
[2018-11-22 10:15] LABS: BASOPHILS PERCENT MAN 0 % (0-2); EOSINOPHILS PERCENT MAN 0 % (0-6); LYMPHOCYTES PERCENT MAN 14 % (21-46); METAMYELOCYTE ABSOLUTE MAN 0.09 K/mm3 (0.00-0.00); METAMYELOCYTE PERCENT MAN 1 % (0-0); MONOCYTES ABSOLUTE MAN 0.84 K/mm3 (0.16-1.47); MONOCYTES PERCENT MAN 9 % (4-13); MYELOCYTE ABSOLUTE MAN 0.09 K/mm3 (0.00-0.00); MYELOCYTE PERCENT MAN 1 % (0-0); SEG NEUTROPHILS PERCENT MAN 75 % (41-73); TOTAL CELLS COUNTED 100
--- NOTE | 2018-11-22 15:56 | NUR ---
SHIFT SUMMARY PATIENT WORKED WITH OT TODAY. HAS BEEN IN BED TODAY. ABLE TO TELL STAFF WHEN NEEDING TO URINATE. RECIEVING TUBE FEEDINGS TOLERATING THIS WELL. IV ANTIBIOTICS. NO ACUTE CHANGES.
--- NOTE | 2018-11-22 18:31 | NUR ---
SHIFT SUMMARY PATIENT IS TOLERATING TUBE FEEDINGS WELL. WORKED WITH OT TODAY, TOO TIRED FOR PT. REQUESTING TO BE HELPED WITH URINATION. NO ACUTE ISSUES NOTED.
--- NOTE | 2018-11-22 18:44 | NUR ---
Spiritual Care routine visit. No family present at time of visit. Don was sleeping. Opened eyes briefly to voice. He appears to be comfortable. I will remain available to pt and family.
--- NOTE | 2018-11-22 20:39 | NUR ---
PEG TUBE RESIDUAL CHECKED WITH 30 ML RESIDUAL. PT TOLERATING TUBE FEEDINGS WELL. RATE INCREASED TO 35 ML/HR. WILL CONTINUE TO MONITOR.
--- NOTE | 2018-11-23 05:12 | NUR ---
SHIFT SUMMARY: Slept well most of the night. Woke up less frequently than he had previous nights. Large incontinent void. Bladder scanned after incontinence discovered- 146cc. PEG tube infusing continuously- increased to 35cc/hr, pedro well. C/O abdominal soreness and stomach burning early in the night. Tylenol administered with good effect. No further complaints. VSS, temp 99.1.
--- NOTE | 2018-11-23 17:10 | NUR ---
Spiritual Care routine visit: Jaime was alone in room and sitting up in recliner. He was awake, but confused. "I want to go home! I'll do anything to get home." He said he was tired of his shoulder pain. He spoke in bursts and then would become withdrawn. He is very [place]. He appears a bit angry, but weak. Declined prayer and appeared unable to carry meaningful conversation. [facility] [employer] will remain available to pt and family.
--- NOTE | 2018-11-23 17:12 | NUR ---
PATIENT IS ALERT. ORIENTED TO SELF, FAMILY AND SURROUNDINGS. HE IS CONFUSED ABOUT HIS RIGHT ARM AND DOES NOT BELIEVE IN HIS ABILITY TO STAND AND WALK. HE TRANSFERS WITH A 2PA TO THE [facility] [place] WITH [place] GAIT BELT AND FWW. PEG TUBE IS RUNNING CONTINUOUSLY WITH JEVITY AT 60ML/HR. HIS SISTER TONI CAME TO VISIT TODAY AND THE RN REMINDED HER THAT SPEECH THERAPY WILL BE HERE BETWEEN 8-10AM TO WORK WITH THE PATIENT IS SHE WOULD LIKE TO BE HERE AT THAT TIME. SHE WAS NOTIFIED ALSO THAT CARE MANAGEMENT IS TRYING TO DISCHARGE THE PATIENT TO [facility] POSSIBLY TOMORROW OR TUESDAY. WILL CONTINUE TO MONITOR.
--- NOTE | 2018-11-24 04:38 | NUR ---
SHIFT SUMMARY: PT IS ALERT AND ORIENTED WITH MODERATE CONFUSION. PT IS A 2 PERSON ASSIST FOR TRANSFERS, TOO WEAK TO STAND ON HIS OWN. PT USES HIS CALL LIGHT APPROPRIATELY PART OF THE TIME, CALLS VERBALY OTHER TIMES. PT REPORTS R. ELBOW PAIN, GAVE PRN TYLENOL AND APPLIED AN ICE PACK FOR A SHORT TIME. PT DENIES NAUSEA, VOMITING, AND SOB. PT SLEPT INTERMITTENTLY DURING THE NIGHT, AWAKE OFTEN. BED IN LOW POSITION, CALL LIGHT WITHIN REACH. WILL CONTINUE TO MONITOR.
[2018-11-24] MEDS ORDERED: ACETAMINOP325 MG/10. PT (10:06)
[2018-11-24] MEDS ORDERED: ALBU2.5V5 INH (10:07)
[2018-11-24] MEDS ORDERED: METR500 PT (10:07)
[2018-11-24] MEDS ORDERED: CEPH500 PT (10:07)
[2018-11-24] MEDS ORDERED: OMEPRAZOLE20 MG PT (10:07)
--- NOTE | 2018-11-24 11:40 | NUR ---
PATIENT DISCHARGED AT 11:35. TRANSPORTED BY [facility]. IV DC'D. PEG TUBE DISCONNECTED FROM FEEDING AND FLUSHED. REPORT CALLED IN TO [facility].
== END 2018-11-24 11:35 | DRG 562 ==
LOC: ER 09:57 → SURS 09:58 → ICUW 14:21 → MEDS 14:21 → ICUE 14:21 → SURS 14:21 → ICUW 11-01 20:45 → ICUE 11-03 10:20 → MEDS 11-06 18:33 → ENPENDDIS 11-24 09:56 → MEDS 11-24 11:35
PROVIDERS: Emergency Medicine; Family Medicine; Hospitalist; Internal Medicine; Nurse Practitioner Acute Care; Surgery; ADMIT Internal Medicine
PROC: 0DJ08ZZ Inspection of Upper Intestinal Tract, Via Natural or Artificial Opening Endoscopic (ICD-10-PCS; 2018-11-21)
PROC: BD11YZZ Fluoroscopy of Esophagus using Other Contrast (ICD-10-PCS; 2018-11-21)
PROC: 0DH63UZ Insertion of Feeding Device into Stomach, Percutaneous Approach (ICD-10-PCS; principal; 2018-11-21 10:00)
DX: S42.211A Unspecified displaced fracture of surgical neck of right humerus, initial encounter for closed fracture (principal); A41.9 Sepsis, unspecified organism; J69.0 Pneumonitis due to inhalation of food and vomit; J96.01 Acute respiratory failure with hypoxia; G92 Toxic encephalopathy; E43 Unspecified severe protein-calorie malnutrition; F10.231 Alcohol dependence with withdrawal delirium; E87.1 Hypo-osmolality and hyponatremia; F10.27 Alcohol dependence with alcohol-induced persisting dementia; Z51.5 Encounter for palliative care; E87.6 Hypokalemia; D63.8 Anemia in other chronic diseases classified elsewhere; E83.39 Other disorders of phosphorus metabolism; E83.51 Hypocalcemia; R13.10 Dysphagia, unspecified; K21.9 Gastro-esophageal reflux disease without esophagitis; W19.XXXA Unspecified fall, initial encounter; F17.210 Nicotine dependence, cigarettes, uncomplicated; Z74.01 Bed confinement status; E88.09 Other disorders of plasma-protein metabolism, not elsewhere classified; Z87.820 Personal history of traumatic brain injury
CPT/HCPCS: 36415; 36600; 51701; 70450; 71045; 71046; 73030; 73060; 74230; 80048; 80053; 80069; 82330; 82607; 82728; 82746; 82803; 82947; 83540; 83550; 83605; 83735; 83880; 84145; 84478; 85014; 85018; 85025; 85027; 87040; 92523; 92526; 92610; 92611; 93005; 93010; 94640; 94667; 94760; 97110; 97116; 97162; 97166; 97530; 97535; 99285-25; A9270; A9270-GY; C1751; C1769; C9113; G0378; J0360; J0610; J0690; J0696; J1170; J1630; J1650; J1885; J1940; J1956; J2060; J2704; J2710; J3010; J3411; J3475; J3480; J7030; J7040; J7042; J7050; J7060; J7120

== ENCOUNTER 2018-12-06 08:17 | Emergency (ER) | payer SELFPAY ==
[~2018-12-06] VITALS: Ht 170.2 cm; Wt 52.2 kg
[~2018-12-06 08:17] MED LIST changes: +ACETAMINOP325 MG/10. PT; +ALBU2.5V5 INH; +CEPH500 PT; +METR500 PT; +OMEPRAZOLE20 MG PT
== END 2018-12-06 11:06 | disposition home or self-care (01) ==
LOC: ER 08:17
DX: S32.029A Unspecified fracture of second lumbar vertebra, initial encounter for closed fracture (principal); W19.XXXA Unspecified fall, initial encounter; Z88.0 Allergy status to penicillin; Z79.899 Other long term (current) drug therapy; D64.9 Anemia, unspecified
CPT/HCPCS: 72070; 72100; 99283-25

== ENCOUNTER 2018-12-22 02:14 | Emergency (ER) | payer SELFPAY ==
[~2018-12-22] VITALS: Ht 185.4 cm; Wt 61.2 kg
[2018-12-22] MEDS ORDERED: BISA10S PR (02:42)
[2018-12-22 02:45] LABS: Chloride (POC) 103 mmol/L (98-108); Creatinine (POC) 0.5 mg/dL (0.8-1.3); Glucose (ISTAT POC) 154 mg/dL (70-99); Hemoglobin (POC) 11.6 g/dL (13.5-17.5); Potassium (POC) 3.3 mmol/L (3.5-5.5); Sodium (POC) 137 mmol/L (135-148); Total CO2 (POC) 24 mmol/L (21-32)
== END 2018-12-22 03:43 | disposition home or self-care (01) ==
LOC: ER 02:14
PROVIDERS: Emergency Medicine
DX: S51.012A Laceration without foreign body of left elbow, initial encounter (principal); E87.6 Hypokalemia; Z88.0 Allergy status to penicillin; Z79.899 Other long term (current) drug therapy; W18.39XA Other fall on same level, initial encounter; Y92.129 Unspecified place in nursing home as the place of occurrence of the external cause
CPT/HCPCS: 80047; 85014; 96374; 99284-25; J2405

== ENCOUNTER 2022-09-21 12:17 | Emergency (ER) | payer OTHER ==
[~2022-09-21] VITALS: Ht 180.3 cm; Wt 68.0 kg
[~2022-09-21 12:17] MED LIST changes: +BISA10S PR
[2022-09-21 14:45] LABS: BASOPHILS ABSOLUTE AUTO 0.03 K/mm3 (0.00-0.23); BASOPHILS PERCENT AUTO 0 % (0-2); EOSINOPHILS ABSOLUTE AUTO 0.01 K/mm3 (0.00-0.68); EOSINOPHILS PERCENT AUTO 0 % (0-6); Hemoglobin 13.2 g/dL (13.5-17.5); IMMATURE GRAN ABSOLUTE AUTO 0.07 K/mm3 (0.00-0.10); IMMATURE GRAN PERCENT AUTO 1 % (0-1); LYMPHOCYTES ABSOLUTE AUTO 0.87 K/mm3 (0.84-5.20); LYMPHOCYTES PERCENT AUTO 8 % (21-46); MONOCYTES ABSOLUTE AUTO 0.78 K/mm3 (0.16-1.47); MONOCYTES PERCENT AUTO 7 % (4-13); Mean Corpuscular HGB 32.9 pg (26.0-34.0); Mean Corpuscular HGB Conc 34.7 g/dL (31.5-36.5); Mean Corpuscular Volume 95 fL (80-100); Mean Platelet Volume 9.1 fL (9.1-12.4); NEUTROPHILS ABSOLUTE AUTO 9.15 K/mm3 (1.96-9.15); NEUTROPHILS PERCENT AUTO 84 % (41-73); Platelet Count 167 K/mm3 (150-400); RDW Standard Deviation 42.2 fL (35.1-46.3); Red Blood Cell Count 4.01 M/mm3 (4.30-5.90); White Blood Cell Count 10.91 K/mm3 (4.00-11.30)
[2022-09-21 14:50] LABS: International Normalized Ratio 1.1; Prothrombin Time Results 11.5 Sec (9.7-11.5)
[2022-09-21 14:57] LABS: Acetaminophen, Random <2.0 ug/mL (10.0-30.0); Salicylate <1.7 mg/dL (2.8-20.0)
[2022-09-21 15:01] LABS: Alanine Aminotransfer (ALT/SGP 263 U/L (12-78); Albumin, Blood 3.7 g/dL (3.4-5.0); Albumin/Globulin Ratio 1.2 (0.8-1.8); Alk Phos 76 U/L (50-136); Anion Gap 8 mmol/L (6-16); Aspartate Aminotrans (AST/SGOT 196 U/L (12-37); Bilirubin, Total 1.5 mg/dL (0.1-1.0); Blood Urea Nitrogen 9 mg/dL (8-24); Bun/Creatinine Ratio 14.6 (12.0-20.0); CO2, Blood 27 mmol/L (21-32); Calcium, Blood 8.6 mg/dL (8.5-10.1); Chloride, Blood 97 mmol/L (98-108); Creatinine, Blood 0.62 mg/dL (0.60-1.20); Ethanol (Alcohol), Blood, Med 76 mg/dL; Globulin, Blood 3.2 g/dL (2.2-4.0); Glomerular Filtration Rate 99 (60-); Glucose, Blood 98 mg/dL (70-99); Potassium, Blood 3.5 mmol/L (3.5-5.5); Sodium, Blood 132 mmol/L (136-145); Total Protein, Blood 6.9 g/dL (6.4-8.2)
[2022-09-21 15:54] LABS: Source, Urine Clean Catch
[2022-09-21 16:02] LABS: Bilirubin, Urine Neg (Neg); Blood, Urine 1+ (Neg); Color, Urine Amber (P-Yellow); Glucose Qualitative, Urine Neg (Neg); Ketones, Urine 2+ (Neg); Leukocyte Esterase, Urine 1+ (Neg); Nitrite, Urine Neg (Neg); Protein, Urine 1+ (Neg); Specific Gravity, Urine 1.025 (1.003-1.022); Urobilinogen, Urine 3+ (Normal)
[2022-09-21 16:14] LABS: U Amphetamine Screen Not Detected; U Barbituate Screen Not Detected; U Benzodiazapine Screen Not Detected; U Buprenorphine Screen Not Detected; U Cannabinoids Screen Not Detected; U Cocaine Screen Not Detected; U Methadone Screen Not Detected; U Methamphetamine Screen Not Detected; U Opiates Screen Not Detected; U Oxycodone Screen Not Detected; U Phencyclidine Screen Not Detected; U Propoxyphene Screen Not Detected
[2022-09-21 16:21] LABS: Appearance, Urine Hazy (Clear)
[2022-09-21 16:23] LABS: Squamous Epithelial Cells Few /hpf (Few)
[2022-09-21 16:25] LABS: Bacteria Few /hpf
[2022-09-21 16:26] LABS: Mucus Mod (0-Heavy)
[2022-09-21 16:27] LABS: Calcium Oxalate Crystals Few /hpf
[2022-09-21 19:00] VITALS: BP 135/80
== END 2022-09-21 19:35 | disposition home or self-care (01) ==
LOC: ER 12:17
PROVIDERS: Emergency Medicine
DX: S06.0X1A Concussion with loss of consciousness of 30 minutes or less, initial encounter (principal); S01.112A Laceration without foreign body of left eyelid and periocular area, initial encounter; W10.8XXA Fall (on) (from) other stairs and steps, initial encounter; Z88.0 Allergy status to penicillin; D64.9 Anemia, unspecified
CPT/HCPCS: 12013; 70450; 71045; 72125; 72170; 73030; 73080; 73100; 80053; 81001; 82140; 83690; 84443; 85025; 85610; 86850; 86900; 86901; 87086; 93005; 93010; 99285-25; G0480

== ENCOUNTER 2023-02-26 17:37 | Emergency (ER) | payer OTHER ==
[~2023-02-26] VITALS: Ht 180.3 cm; Wt 72.6 kg
[2023-02-26 18:20] LABS: BASOPHILS ABSOLUTE AUTO 0.05 K/mm3 (0.00-0.23); BASOPHILS PERCENT AUTO 1 % (0-2); EOSINOPHILS ABSOLUTE AUTO 0.05 K/mm3 (0.00-0.68); EOSINOPHILS PERCENT AUTO 1 % (0-6); Hemoglobin 12.9 g/dL (13.5-17.5); IMMATURE GRAN ABSOLUTE AUTO 0.04 K/mm3 (0.00-0.10); IMMATURE GRAN PERCENT AUTO 1 % (0-1); LYMPHOCYTES ABSOLUTE AUTO 1.22 K/mm3 (0.84-5.20); LYMPHOCYTES PERCENT AUTO 14 % (21-46); MONOCYTES ABSOLUTE AUTO 1.05 K/mm3 (0.16-1.47); MONOCYTES PERCENT AUTO 12 % (4-13); Mean Corpuscular HGB 30.4 pg (26.0-34.0); Mean Corpuscular HGB Conc 33.9 g/dL (31.5-36.5); Mean Corpuscular Volume 89 fL (80-100); Mean Platelet Volume 8.4 fL (9.1-12.4); NEUTROPHILS ABSOLUTE AUTO 6.22 K/mm3 (1.96-9.15); NEUTROPHILS PERCENT AUTO 72 % (41-73); Platelet Count 263 K/mm3 (150-400); RDW Coefficient Variation 15.4 % (11.7-14.2); Red Blood Cell Count 4.25 M/mm3 (4.30-5.90); White Blood Cell Count 8.63 K/mm3 (4.00-11.30)
[2023-02-26 18:26] LABS: Source, Urine Clean Catch
[2023-02-26 18:32] LABS: Appearance, Urine Clear (Clear); Bilirubin, Urine Neg (Neg); Blood, Urine 2+ (Neg); Color, Urine Yellow (P-Yellow); Glucose Qualitative, Urine Neg (Neg); Ketones, Urine Neg (Neg); Leukocyte Esterase, Urine Neg (Neg); Nitrite, Urine Neg (Neg); Protein, Urine Neg (Neg); Specific Gravity, Urine 1.015 (1.003-1.022); Urobilinogen, Urine NORM (Normal)
[2023-02-26 18:44] LABS: Albumin, Blood 3.2 g/dL (3.4-5.0); Albumin/Globulin Ratio 0.8 (0.8-1.8); Bilirubin, Total 0.7 mg/dL (0.1-1.0); Bun/Creatinine Ratio 19.3 (12.0-20.0); Calcium, Blood 8.5 mg/dL (8.5-10.1); Creatinine, Blood 0.73 mg/dL (0.60-1.20); Globulin, Blood 3.9 g/dL (2.2-4.0); Potassium, Blood 4.3 mmol/L (3.5-5.5); Total Protein, Blood 7.1 g/dL (6.4-8.2)
[2023-02-26 18:47] LABS: U Amphetamine Screen Not Detected; U Barbituate Screen Not Detected; U Benzodiazapine Screen Not Detected; U Buprenorphine Screen Not Detected; U Cannabinoids Screen Not Detected; U Cocaine Screen Not Detected; U Methadone Screen Not Detected; U Methamphetamine Screen Not Detected; U Opiates Screen Not Detected; U Oxycodone Screen Not Detected; U Phencyclidine Screen Not Detected
[2023-02-26 18:49] LABS: Bacteria Rare /hpf; Red Blood Cells, Urine 0-2 /hpf (0-2); Squamous Epithelial Cells Not Seen /hpf (Few); White Blood Cells, Urine 0-2 /hpf (0-5)
[2023-02-26 21:00] VITALS: BP 147/86
== END 2023-02-26 21:09 | disposition home or self-care (01) ==
LOC: ER 17:37
PROVIDERS: Student in an Organized Health Care Education/Training Program
DX: S01.111A Laceration without foreign body of right eyelid and periocular area, initial encounter (principal); W18.30XA Fall on same level, unspecified, initial encounter; Z88.0 Allergy status to penicillin
CPT/HCPCS: 70450; 71045; 80053; 81001; 82947; 85025; 93005; 93010; 99284-25